=== PATIENT | female | born 1945 | race Caucasian/White ===

== ENCOUNTER 2016-08-18 10:33 | Inpatient (IN) ==
[2016-08-18] MEDS ORDERED: ONDANSETRON 4 MG/2 ML VIAL IV STA (11:13)
[2016-08-18] MEDS ORDERED: SODIUM CHLORIDE 0.9% 1,000 ML IV STA ×2 (11:13→13:38)
[2016-08-18] MEDS ORDERED: ONDANSETRON 4 MG/2 ML VIAL ONE (12:10)
[2016-08-18 12:20] LABS: Apearance,Urine Slightly Hazy (Clear); Bacteria,Urine Occasional /HPF (Few); Bilirubin,Urine Negative (Negative); Blood, Urine Moderate mg/dL (Negative); Glucose,Urine (UA) Negative (Negative); Ketones,Urine Negative (Negative); Mucus,Urine Occasional /LPF (Occasional); Nitrite,Urine Negative (Negative); Protein,Urine 100 MG/DL; RBC,Urine 3 /HPF (0-4); Squamous Epithelial Cell,Urine Occasional /HPF (0-10); Urine Color Yellow (Yellow); Urine Specific Gravity 1.013 (1.001-1.035); Urine Urobilinogen < 2.0 EU/DL (0.2-1.0); WBC,Urine 3 /HPF (0-6)
[2016-08-18 12:40] LABS: Albumin 2.4 G/DL (3.4-5.0); Calcium 8.3 MG/DL (8.5-10.1); Osmolality,Calculated 283.5 MOS/KG (273-304); Potassium 5.2 MMOL/L (3.5-5.1); Total Protein 6.2 G/DL (6.4-8.3)
[2016-08-18 13:07] LABS: Basophils # 0.1 10*3/uL (0.0-0.2); Basophils % 0.5 % (0.0-0.8); Hematocrit 23.1 VOL% (35.7-47.0); Hemoglobin 7.7 GM/DL (12.0-16.0); Immature Granulocytes % 1.8 %; Immature Granulocytes Absolute 0.23 #; Lymphocytes # 0.9 10*3/uL (1.4-4.0); Lymphocytes % 6.7 % (21.3-54.2); Mean Corpuscular HGB Conc 33.3 GM/DL (32-36); Mean Corpuscular Hemoglobin 28 PG (27-34); Mean Corpuscular Volume 83.4 FL (87-102); Mean Platelet Volume 12.7 FL (9.6-12.0); Monocytes # 0.5 10*3/uL (0.11-0.8); Monocytes % 3.6 % (1.7-12.7); Neutrophils # 11.2 10*3/uL (1.4-7.4); Neutrophils % 87.4 % (38.7-73.9); Platelet Count 89 T/CUMM (130-400); Red Blood Count 2.77 MC/CUMM (3.8-5.5); White Blood Count 12.9 T/CUMM (4-12)
[2016-08-18 13:25] LABS: Band Neutrophils 3 % (0-10); Hypochromasia 1+; Lymphocytes 3 % (20-55); Metamyelocytes 2 %; Microcytosis 1+; Nucleated Red Blood Cells 1 (0-5); Segmented Neutrophils 88 % (50-85); Total Cells Counted 100
[2016-08-18 13:26] LABS: Platelet Estimate Decreased
--- NOTE | 2016-08-18 14:09 | Emergency Department Note ---
Kedar Eller Jamie, am scribing for, and in the presence of, Joel Sams MD 11:14. Latrell Eller Doug C, MD, personally performed the services described in this documentation, ascribed by Paulo Thacker in my presence, and it is both accurate and complete . Arrival - Arrival Chief Complaint: Nausea/Vomiting/Diarrhea Stated Complaint: nausea/not feeling well/diarreha ED Nursing Triage Note: Pt c/o nausea, loose stools and weakness since yesterday. Chemo on . Mode of Arrival: Wheelchair Limitations: No Limitations Source: Patient, RN Notes Reviewed Time Seen by Provider: 08/18/16 10:44 - History of Present Illness HPI Narrative: Patient is a 70-year-old white female who developed nausea, vomiting and diarrhea yesterday. Patient received chemotherapy last week apparently had similar difficulty with her prior chemo. Patient denies any fever but she did have chills associated with this illness. She denies any history of blood in the stool or her vomitus. She denies any abdominal pain. Patient states she is vomited some but she is very weak and having difficulty walking. She has a history of pancreatic adenocarcinoma. Onset (ago): day(s) (1) Consistency: constant Severity: moderate Allergies/Adverse Reactions: Allergies Allergy/AdvReac Type Severity Reaction Status Date / Time fluconazole [From Diflucan] Allergy Severe PT STATES Verified 07/11/16 09:36 IT STOPS HER HEART. Home Medications: Home Medications Medication Instructions Recorded Confirmed Type Digoxin Tab [Lanoxin Tab] 0.5 tablet PO DAILY@1300 07/10/16 08/18/16 History Famotidine Tab [Pepcid Tab] 20 mg PO BID 07/10/16 08/18/16 History Fluoxetine HCl 20 mg PO DAILY 07/10/16 08/18/16 History Furosemide Tab [Lasix Tab] 40 mg PO DAILY PRN 07/10/16 08/18/16 History Rifaximin [Xifaxan] 550 mg PO BID 07/10/16 08/18/16 History Thyroid,Pork [[place] Thyroid] 90 mg PO DAILY 07/10/16 08/18/16 History glyBURIDE [Glyburide] 10 mg PO DAILY 07/10/16 08/18/16 History Lipase/Protease/Amylase [Creon 1 capsule PO DAILY W/SUPPER 08/18/16 08/18/16 History 12,000 Units] Promethazine HCl 12.5 mg PO Q4H PRN 08/18/16 08/18/16 History Review of System - Review of System 12 point system: reviewed and no additional remarkable complaints except as stated - Review of System Constitutional: Present: weakness. Absent: chills, diaphoresis, fever Eyes: Absent: vision change Respiratory: Absent: cough Cardiovascular: Absent: chest pain Gastrointestinal: Present: nausea, vomiting, diarrhea. Absent: abdominal pain, constipation Musculoskeletal: Absent: joint swelling Skin: Absent: rash, change in color Neurological: Absent: headache, weakness, numbness, confusion Hematological/Lymphatic: Absent: easy bleeding, easy bruising Medical,Surgical,& Family Hx - Medical History Cardio: History of: Cardiovascular Problems (STENT BETWEEN HEART AND LIVER [facility] GETTING INFO) Renal: History of: Renal (Kidney) Cancer (HX DECREASE FUNCTIO 6 YRS AGO) Gastrointestinal: History of: Gastrointestinal Cancer (Pancreatic), GI Problems (CIRHOSIS OF LIVER LIVER SUGERY SPLEEN REMOVE PART OF PANCREAS REMOVE [facility]) Comment Only: Ulcerative Colitis (GETTING INFO DR MCDONALD) - Surgical History Abdominal Surgeries: Surgical HX of: Abdominal Surgery, Colonoscopy, EGD - Family History Family History: Reports;: Family Diabetes (MOM) - Social History Smoking Status: Former smoker Exam Vital Signs: Vital Signs Temperature 98.7 F 08/18/16 10:34 Pulse Rate 121 H 08/18/16 10:34 Respiratory Rate 18 08/18/16 10:34 Blood Pressure 115/60 08/18/16 10:34 O2 Sat by Pulse Oximetry 95 08/18/16 10:34 - General General appearance: alert, in no apparent distress - Head Head exam: Present: atraumatic, normocephalic, normal inspection - Eye Eye exam: Present: normal appearance, PERRL, EOMI - ENT ENT exam: Present: normal exam, normal oropharynx, mucous membranes dry - Neck Neck exam: Present: normal inspection, full ROM - Chest Chest inspection: Present: normal inspection, symmetric chest wall rise - Respiratory Respiratory exam: Present: normal lung sounds bilaterally - Cardiovascular Cardiovascular exam: Present: regular rate, normal rhythm, normal heart sounds - Abdominal Exam Abdominal exam: Present: soft, normal bowel sounds - Extremities Exam Extremities exam: Present: normal inspection, full ROM - Back Exam Back exam: Present: normal inspection, full ROM - Neurological Exam Neurological exam: Present: alert, oriented X3, CN II-XII intact, reflexes normal - Psychiatric Psychiatric exam: Present: normal affect, normal mood - Skin Skin exam: Present: warm, dry, intact, normal color Course Course Narrative: Patient's clinical presentation, laboratory and radiographic findings were discussed with Dr. Reynaga. Patient will be admitted to the services of Dr. Ly and she will be transfused 2 units packed red blood cells per Results - Labs CBC & BMP: 08/18/16 12:53 08/18/16 11:51 Lab Results: I have reviewed the patients labs - Diagnostic Findings Procedure: Chest x-ray: report reviewed by me (No acute infiltrate) Disposition Clinical Impression: Gastroenteritis, Dehydration Case discussed with: patient, patient's family Disposition: Still a Patient Condition: Stable Time of Disposition: 14:09
[2016-08-18] MEDS ORDERED: MAGNESIUM HYDROXIDE SUSP 30 ML UDCUP PO PRN (14:11)
[2016-08-18] MEDS ORDERED: guaiFENesin 200 MG/10 ML UDCUP PO PRN (14:11)
[2016-08-18] MEDS ORDERED: LACTULOSE 20 GM/30 ML UDCUP PO PRN (14:11)
[2016-08-18] MEDS ORDERED: chlorproMAZINE 25 MG TABLET PO PRN (14:11)
[2016-08-18] MEDS ORDERED: TEMAZEPAM 7.5 MG CAPSULE PO PRN (14:11)
[2016-08-18] MEDS ORDERED: chlorproMAZINE INJ 25 MG in SODIUM CHLORIDE 0.9% 100 ML IV PRN (14:11)
[2016-08-18] MEDS ORDERED: traMADol 50 MG TABLET PO PRN (14:11)
[2016-08-18] MEDS ORDERED: ACETAMINOPHEN 325 MG TABLET PO PRN (14:11)
[2016-08-18] MEDS ORDERED: ONDANSETRON 4 MG/2 ML VIAL IV PRN (14:11)
[2016-08-18] MEDS ORDERED: PROMETHAZINE INJ 25 MG in SODIUM CHLORIDE 0.9% 50 ML IV PRN (14:11)
[2016-08-18] MEDS ORDERED: SODIUM CHLORIDE 0.9% 250 ML IV PRN (14:11)
[2016-08-18] MEDS ORDERED: MYLANTA/LIDO VISC 2:1 300 ML BOTTLE SWISH/SWAL PRN (14:11)
[2016-08-18] MEDS ORDERED: ALPRAZolam 0.25 MG TABLET PO PRN (14:11)
[2016-08-18] MEDS ORDERED: chlorproMAZINE INJ 50 MG in SODIUM CHLORIDE 0.9% 100 ML IV PRN (14:11)
[2016-08-18] MEDS ORDERED: MYLANTA/LIDO VISC 2:1 300 ML BOTTLE SWISH/SPIT PRN (14:11)
[2016-08-18] MEDS ORDERED: BENZTROPINE 2 MG/2 ML AMP IV PRN (14:11)
[2016-08-18] MEDS ORDERED: LOPERAMIDE 2 MG CAPSULE PO PRN (14:11)
[2016-08-18] MEDS ORDERED: ALUMINUM/MAGNES/SIMETH MAX STR 30 ML UDCUP PO PRN (14:11)
[2016-08-18] MEDS ORDERED: diphenhydrAMINE CAP 25 MG CAPSULE PO PRN (14:11)
--- NOTE | 2016-08-18 14:15 | XRay Report ---
XR chest 1V portable Indication: Shortness of breath Comparison: Chest x-ray 04/20/2010. Technique: Portable AP chest was performed. Findings: The heart size appears within normal limits. Left-sided venous access device terminates within the superior vena cava. Prior cervical fusion appears stable. Pulmonary vasculature demonstrates no specific abnormality. Hilar structures demonstrate fairly symmetric appearance. The lungs lungs demonstrate nonspecific stranding pattern of opacification in the lower chest unchanged from comparison study the main part be chronic. Some areas of parenchymal scarring and I excluded. Bones and soft tissues demonstrate no evidence of acute pathology. Impression: 1. No specific pattern of parenchymal abnormality is present to suggest acute pathology. Nonspecific interstitial stranding has changed little since comparison. 2. Interval insertion of left side venous access device. 08/18/2016 2:11 PM PROCEDURE INTERPRETED AT [facility] DEPARTMENT OF RADIOLOGY Final Report Signed by: Dr. Jamin Malave
[2016-08-18 14:31] LABS: Magnesium 1.8 MG/DL (1.8-2.4); Uric Acid 5.9 MG/DL (2.6-6.0)
[2016-08-18] MEDS: DEXTROSE 5% NACL 0.9% 1,000 ML IV SCH (16:14)
[2016-08-18] MEDS: FAMOTIDINE 20 MG TABLET PO SCH (16:29)
[2016-08-18] MEDS: LIPASE/PROTEASE/AMYLASE 4,200 UNITS CAPSULE PO SCH (16:29)
[2016-08-18] MEDS: RIFAXIMIN 550 MG TABLET PO SCH (21:13)
[2016-08-18] MEDS ORDERED: MEROPENEM 1,000 MG in SODIUM CHLORIDE 0.9% 100 ML IV SCH (23:30)
[2016-08-18] MEDS: MEROPENEM 1,000 MG in SODIUM CHLORIDE 0.9% 100 ML IV SCH (23:31)
[2016-08-19 05:38] LABS: Basophils # 0.1 10*3/uL (0.0-0.2); Basophils % 0.8 % (0.0-0.8); Hematocrit 25.3 VOL% (35.7-47.0); Hemoglobin 8.4 GM/DL (12.0-16.0); Immature Granulocytes % 1.9 %; Immature Granulocytes Absolute 0.21 #; Lymphocytes # 1.1 10*3/uL (1.4-4.0); Lymphocytes % 9.3 % (21.3-54.2); Mean Corpuscular HGB Conc 33.2 GM/DL (32-36); Mean Corpuscular Hemoglobin 28 PG (27-34); Mean Platelet Volume 12.1 FL (9.6-12.0); Monocytes # 0.7 10*3/uL (0.11-0.8); Monocytes % 6.1 % (1.7-12.7); NRBC # 0.03 10*3/uL; Neutrophils # 9.2 10*3/uL (1.4-7.4); Neutrophils % 81.9 % (38.7-73.9); Red Blood Count 3.05 MC/CUMM (3.8-5.5); Red Cell Distribution Width 17.5 % (9.3-17.3); White Blood Count 11.2 T/CUMM (4-12)
[2016-08-19 05:41] LABS: Platelet Count 58 T/CUMM (130-400)
[2016-08-19 06:28] LABS: Band Neutrophils 9 % (0-10); Hypochromasia Slight; Lymphocytes 9 % (20-55); Segmented Neutrophils 77 % (50-85); Total Cells Counted 100
[2016-08-19 06:31] LABS: Howell-Jolly Bodies Few
[2016-08-19 06:32] LABS: Toxic Granulation 1+
[2016-08-19] MEDS ORDERED: SODIUM CHLORIDE 0.9% 250 ML IV PRN (08:44)
--- NOTE | 2016-08-19 08:49 | Oncology History&Physical ---
Assessment and Plan (1) Pancreatic cancer Status: Acute Assessment and plan: Transfuse 1 additional red blood cell. Await blood culture results. Remains on antibiotics. We have discussed changing her chemotherapy to 1 dose every 2 weeks based on required hospitalization with each of the first 2 cycles Current Visit: Yes History of Present Illness Chief complaint: Weakness and diarrhea History of present illness: Ms. Holman is a 70 year old female With locally advanced pancreatic adenocarcinoma recently diagnosed at [facility]. She is status post cycle 2 day 8 gemcitabine and Abraxane approximately 6 days ago. She presented with weakness and diarrhea. She did have fever overnight and was placed on antibiotics with blood cultures obtained. She appears nontoxic this morning. She is urinating well. She has baseline chronic kidney disease with creatinine around 2.0. She was given Lomotil with significant improvement of her diarrhea. She was also anemic and has been transfused 2 units of red blood cells with a third unit to be ordered Home Medications Medication Instructions Recorded Confirmed Type Digoxin Tab [Lanoxin Tab] 0.5 tablet PO DAILY@1300 07/10/16 08/18/16 History Famotidine Tab [Pepcid Tab] 20 mg PO BID 07/10/16 08/18/16 History Fluoxetine HCl 20 mg PO DAILY 07/10/16 08/18/16 History Furosemide Tab [Lasix Tab] 40 mg PO DAILY PRN 07/10/16 08/18/16 History Rifaximin [Xifaxan] 550 mg PO BID 07/10/16 08/18/16 History Thyroid,Pork [[place] Thyroid] 90 mg PO DAILY 07/10/16 08/18/16 History glyBURIDE [Glyburide] 10 mg PO DAILY 07/10/16 08/18/16 History Lipase/Protease/Amylase [Creon 1 capsule PO DAILY W/SUPPER 08/18/16 08/18/16 History 12,000 Units] Promethazine HCl 12.5 mg PO Q4H PRN 08/18/16 08/18/16 History Allergies Allergy/AdvReac Type Severity Reaction Status Date / Time fluconazole [From Diflucan] Allergy Severe PT STATES Verified 07/11/16 09:36 IT STOPS HER HEART. Medical,Surgical,& Family Hx - Medical History Cardio: History of: Cardiovascular Problems (STENT BETWEEN HEART AND LIVER [facility] GETTING INFO) Neurology: History of: Seizures Endocrine: History of: Diabetes Mellitus (NIDDM), Thyroid Disorder Renal: History of: Renal (Kidney) Cancer (HX DECREASE FUNCTIO 6 YRS AGO), Renal Problems (Kidney Disease (Glomerularnephritis)) Gastrointestinal: History of: Gastrointestinal Cancer (Pancreatic), GI Problems (CIRHOSIS OF LIVER LIVER SUGERY SPLEEN REMOVE PART OF PANCREAS REMOVE [facility]) Comment Only: Ulcerative Colitis (GETTING INFO DR MCDONALD) - Surgical History Thoracic Surgeries: Patient denies;: Organ Transplant Abdominal Surgeries: Surgical HX of: Abdominal Surgery, Colonoscopy, EGD - Family History Family History: Reports;: Family Diabetes (MOM) - Social History Smoking Status: Former smoker Frequency of Alcohol Use: None Type of Drug Use: None - Constitutional Constitutional: Present: malaise. Absent: increased appetite - EENT Nose, mouth and throat: Absent: dizziness, dysphagia, epistaxis - Cardiovascular Cardiovascular ROS IM: Absent: chest pain, palpitations - Respiratory Respiratory: Absent: cough, hemoptysis, wheezing - Musculoskeletal Musculoskeletal ROS: Absent: joint swelling - Neurological Neurological ROS: Absent: dizziness, focal weakness, headache(s), memory loss, numbness - Psychiatric Psychiatric General: Absent: depression, panic attacks, suicidal ideation - Hematologic/Lymphatic Hematologic/Lymphatic: Absent: easy bleeding, lymphadenopathy Exam - Constitutional Vitals: Period Temp Pulse Resp BP Sys/Moore Pulse Ox Last 24 Hr 98.4 F-101.2 F 98-113 18-20 115-161/58-109 91-98 General appearance: no acute distress, over weight - Head Head Exam: Present: normal inspection, normocephalic, atraumatic - Eye Eye Exam: Present: EOMI. Absent: conjunctival injection, periorbital swelling, scleral icterus Pupils: Present: PERRL, normal accommodation - ENT ENT exam: Present: normal external ear exam - Neck Neck exam: Present: normal inspection. Absent: lymphadenopathy - Respiratory Respiratory exam: Present: CTAB. Absent: accessory muscle use, chest wall tenderness - Cardiovascular Cardiovascular exam: Present: RRR - GI/Abdominal GI/Abdominal exam: Absent: ascites, distended, firm, guarding, mass - Neurological Exam Neurological exam: Present: alert, oriented X3 - Psychiatric Psychiatric exam: Present: normal affect, normal mood - Skin Skin exam: Present: warm, dry Results - Labs CBC & BMP: 08/19/16 05:25 08/18/16 11:51
[2016-08-19] MEDS ORDERED: glyBURIDE 5 MG TABLET PO SCH (09:00)
[2016-08-19] MEDS: FAMOTIDINE 20 MG TABLET PO SCH (09:40)
[2016-08-19] MEDS: THYROID 60 MG TABLET PO SCH (09:40)
[2016-08-19] MEDS: RIFAXIMIN 550 MG TABLET PO SCH ×2 (09:40→20:45)
[2016-08-19] MEDS: PANTOPRAZOLE 40 MG VIAL IV SCH (09:41)
[2016-08-19] MEDS: MEROPENEM 1,000 MG in SODIUM CHLORIDE 0.9% 100 ML IV SCH ×2 (09:41→16:05)
[2016-08-19] MEDS: FLUoxetine 20 MG CAPSULE PO SCH (09:41)
[2016-08-19] MEDS: DIGOXIN 0.125 MG TABLET PO SCH (14:55)
[2016-08-19] MEDS: DEXTROSE 5% NACL 0.9% 1,000 ML IV SCH (16:02)
[2016-08-19] MEDS: LIPASE/PROTEASE/AMYLASE 4,200 UNITS CAPSULE PO SCH (17:33)
[2016-08-20] MEDS: MEROPENEM 1,000 MG in SODIUM CHLORIDE 0.9% 100 ML IV SCH ×4 (00:07→20:42)
[2016-08-20 04:01] LABS: Basophils # 0.1 10*3/uL (0.0-0.2); Basophils % 0.4 % (0.0-0.8); Eosinophils # 0.1 10*3/uL (0.0-0.87); Eosinophils % 0.4 % (0.00-10.9); Hematocrit 27.6 VOL% (35.7-47.0); Hemoglobin 9.3 GM/DL (12.0-16.0); Immature Granulocytes % 2.2 %; Immature Granulocytes Absolute 0.27 #; Lymphocytes # 1.2 10*3/uL (1.4-4.0); Mean Corpuscular HGB Conc 33.7 GM/DL (32-36); Mean Corpuscular Hemoglobin 27 PG (27-34); Mean Corpuscular Volume 81.4 FL (87-102); Mean Platelet Volume 9.9 FL (9.6-12.0); Monocytes # 1.8 10*3/uL (0.11-0.8); Monocytes % 14.6 % (1.7-12.7); NRBC # 0.06 10*3/uL; Neutrophils # 8.9 10*3/uL (1.4-7.4); Neutrophils % 72.4 % (38.7-73.9); Red Blood Count 3.39 MC/CUMM (3.8-5.5); Red Cell Distribution Width 17.4 % (9.3-17.3); White Blood Count 12.3 T/CUMM (4-12)
[2016-08-20 04:04] LABS: Platelet Count 38 T/CUMM (130-400)
[2016-08-20 04:26] LABS: Band Neutrophils 2 % (0-10); Lymphocytes 8 % (20-55); Nucleated Red Blood Cells 1 (0-5); Total Cells Counted 100
[2016-08-20 04:29] LABS: Burr Cells 2+; Platelet Estimate Decreased
[2016-08-20 04:30] LABS: Howell-Jolly Bodies Few; Ovalocytes 1+; Toxic Granulation 1+
[2016-08-20 04:31] LABS: Segmented Neutrophils 84 % (50-85)
[2016-08-20 04:58] LABS: Bilirubin,Total 0.6 MG/DL (0.2-1.0); Calcium 8.1 MG/DL (8.5-10.1); Magnesium 1.7 MG/DL (1.8-2.4); Osmolality,Calculated 282.4 MOS/KG (273-304); Potassium 3.6 MMOL/L (3.5-5.1)
[2016-08-20] MEDS ORDERED: MAGNESIUM SULF INJ 3 GM in SODIUM CHLORIDE 0.9% 100 ML IV ONE (08:23)
--- NOTE | 2016-08-20 08:25 | Oncology Progress Note ---
Assessment and Plan (1) Pancreatic cancer Status: Acute Assessment and plan: Transfuse 1 additional red blood cell. Await blood culture results. Remains on antibiotics. We have discussed changing her chemotherapy to 1 dose every 2 weeks based on required hospitalization with each of the first 2 cycles Current Visit: Yes Oncology Subjective PN Interval history: Hospital day 3 for patient with pancreatic cancer. Overnight she has had mild diarrhea. She is on a regular diet. She has had hypoglycemia and her glyburide is on hold. Her labs are reviewed with improved creatinine. She does have thrombocytopenia and we will repeat this tomorrow. I am giving her an IV magnesium. She does have an active infection with blood cultures still showing preliminary results at this time Exam - Constitutional Vitals: Period Temp Pulse Resp BP Sys/Moore Pulse Ox Last 24 Hr 97.2 F-101.1 F 76-113 18-20 128-149/58-68 93-95 Results - Labs CBC & BMP: 08/20/16 03:54 08/20/16 03:54
[2016-08-20] MEDS: LOPERAMIDE 2 MG CAPSULE PO PRN (09:24)
[2016-08-20] MEDS: THYROID 60 MG TABLET PO SCH (09:25)
[2016-08-20] MEDS: RIFAXIMIN 550 MG TABLET PO SCH ×2 (09:25→20:42)
[2016-08-20] MEDS: FLUoxetine 20 MG CAPSULE PO SCH (09:25)
[2016-08-20] MEDS: FAMOTIDINE 20 MG TABLET PO SCH (09:25)
[2016-08-20] MEDS: PANTOPRAZOLE 40 MG VIAL IV SCH (09:26)
[2016-08-20] MEDS: DIGOXIN 0.125 MG TABLET PO SCH (12:45)
[2016-08-20] MEDS: LIPASE/PROTEASE/AMYLASE 4,200 UNITS CAPSULE PO SCH (16:57)
[2016-08-20] MEDS: DEXTROSE 5% NACL 0.9% 1,000 ML IV SCH (18:57)
[2016-08-21] MEDS: DEXTROSE 5% NACL 0.9% 1,000 ML IV SCH (00:17)
[2016-08-21 05:02] LABS: Basophils % 0.1 % (0.0-0.8); Eosinophils # 0.1 10*3/uL (0.0-0.87); Eosinophils % 0.6 % (0.00-10.9); Hematocrit 26.9 VOL% (35.7-47.0); Hemoglobin 9.1 GM/DL (12.0-16.0); Immature Granulocytes % 1.6 %; Immature Granulocytes Absolute 0.23 #; Lymphocytes # 1.2 10*3/uL (1.4-4.0); Lymphocytes % 8.3 % (21.3-54.2); Mean Corpuscular HGB Conc 33.8 GM/DL (32-36); Mean Corpuscular Hemoglobin 28 PG (27-34); Mean Corpuscular Volume 83.3 FL (87-102); Mean Platelet Volume 11.3 FL (9.6-12.0); Monocytes # 2.8 10*3/uL (0.11-0.8); Monocytes % 18.9 % (1.7-12.7); NRBC # 0.29 10*3/uL; Neutrophils # 10.4 10*3/uL (1.4-7.4); Neutrophils % 70.5 % (38.7-73.9); Platelet Count 49 T/CUMM (130-400); Red Blood Count 3.23 MC/CUMM (3.8-5.5); Red Cell Distribution Width 17.7 % (9.3-17.3); White Blood Count 14.8 T/CUMM (4-12)
[2016-08-21 05:40] LABS: Eosinophils 1 % (0-10); Hypochromasia 1+; Lymphocytes 5 % (20-55); Nucleated Red Blood Cells 2 (0-5); Ovalocytes Slight; Platelet Estimate Decreased; Segmented Neutrophils 80 % (50-85); Total Cells Counted 100
[2016-08-21] MEDS ORDERED: HYOSCYAMINE 0.125 MG TABLET PO PRN (08:22)
--- NOTE | 2016-08-21 08:26 | Oncology Progress Note ---
Assessment and Plan (1) Pancreatic cancer Status: Acute Assessment and plan: Transfuse 1 additional red blood cell. Await blood culture results. Remains on antibiotics. We have discussed changing her chemotherapy to 1 dose every 2 weeks based on required hospitalization with each of the first 2 cycles Current Visit: Yes Oncology Subjective PN Interval history: Pancreatic cancer admitted with gastroenteritis. She is still having some loose bowel movements she is on pancreatic enzyme replacement. We are expecting physical therapy to see her today. Her daughter and I have encouraged her to get up and out of bed. Her p.o. intake remains limited. I will try probiotics and Levsin in addition to her other medications. Her platelets are improved today and her hematocrit and white blood cell count appear stable. We have discussed discharge for tomorrow. Cultures show Haemophilus influenza which appears multidrug sensitive Exam - Constitutional Vitals: Period Temp Pulse Resp BP Sys/Moore Pulse Ox Last 24 Hr 97.4 F-100.8 F 84-94 18-20 121-172/63-89 91-96 Results - Labs CBC & BMP: 08/21/16 04:00 08/20/16 03:54
[2016-08-21] MEDS ORDERED: glyBURIDE 5 MG TABLET PO SCH (09:00)
--- NOTE | 2016-08-21 09:16 | Physician Query Form ---
CLICK EDIT DOCUMENT TO SELECT QUERY ANSWER --> OK --> SIGN Yvonne Howard RN Clinical Provider Relations Specialist W) [phone] (f) [phone] [email or web address] PROVIDERS: Make your selection(s) from the choices in EACH section by typing an "x" and enter comments in the comment section. Please use your independent medical judgment in providing your response. This request does not imply that any particular answer is desired or expected. CLINICAL INDICATORS: (Providers should not edit this section) Based on lab results of creatinine on admission of 2.00 with a GFR of 30 and decreased to 1.60. Pt. treated with IV fluids. Clarify which of the following most accurately represents the patient's renal status: ( ) Acute kidney injury (non-traumatic) ( ) Acute renal failure ( ) Acute renal failure with underlying Chronic Kidney Disease (CKD) - please provide stage below (x ) CKD - please provide stage below ( ) Other, please specify: ( ) Clinically unable to determine Chronic Kidney Disease Stages Source: National Kidney Disease Foundation ( ) Stage I (eGFR > or = 90) ( ) Stage II (eGFR 60 - 89) (x ) Stage III (eGFR 30 - 59) ( ) Stage IV (eGFR 15 - 29) ( ) Stage V (eGFR < 15 or dialysis) COMMENTS: PLEASE ALSO DOCUMENT RESPONSE IN PROGRESS NOTES AND/OR DISCHARGE SUMMARY Use of terms such as suspected, likely, or probable (associated with a specific diagnosis that is being evaluated, monitored, or treated as if it exists) are acceptable and can be restated in the discharge summary if not ruled out. MTDD
[2016-08-21] MEDS: AMOXICILLIN 875 MG TABLET PO SCH ×2 (10:02→21:16)
[2016-08-21] MEDS: RIFAXIMIN 550 MG TABLET PO SCH ×2 (10:03→21:16)
[2016-08-21] MEDS: THYROID 60 MG TABLET PO SCH (10:03)
[2016-08-21] MEDS: FLUoxetine 20 MG CAPSULE PO SCH (10:03)
[2016-08-21] MEDS: FAMOTIDINE 20 MG TABLET PO SCH (10:03)
[2016-08-21] MEDS: LACTOBACILLUS RHAMNOSUS GG CAPSULE PO SCH ×2 (10:03→21:16)
[2016-08-21] MEDS: LOPERAMIDE 2 MG CAPSULE PO PRN (10:04)
[2016-08-21] MEDS: PANTOPRAZOLE 40 MG VIAL IV SCH (10:04)
[2016-08-21] MEDS: DIGOXIN 0.125 MG TABLET PO SCH (13:45)
[2016-08-21] MEDS: LIPASE/PROTEASE/AMYLASE 4,200 UNITS CAPSULE PO SCH (17:51)
[2016-08-22 08:30] VITALS: BP 140/64
[2016-08-22] MEDS ORDERED: HEPARIN LOCK FLUSH 500 UNIT/5 ML SYRINGE IV ONE (09:02)
[2016-08-22] MEDS: RIFAXIMIN 550 MG TABLET PO SCH (09:14)
[2016-08-22] MEDS: FAMOTIDINE 20 MG TABLET PO SCH (09:14)
[2016-08-22] MEDS: THYROID 60 MG TABLET PO SCH (09:14)
[2016-08-22] MEDS: LACTOBACILLUS RHAMNOSUS GG CAPSULE PO SCH (09:14)
[2016-08-22] MEDS: FLUoxetine 20 MG CAPSULE PO SCH (09:14)
[2016-08-22] MEDS: PANTOPRAZOLE 40 MG VIAL IV SCH (09:15)
[2016-08-22] MEDS: AMOXICILLIN 875 MG TABLET PO SCH (09:17)
--- NOTE | 2016-08-22 12:17 | Oncology Progress Note ---
Assessment and Plan (1) Pancreatic cancer Status: Acute Assessment and plan: Transfuse 1 additional red blood cell. Await blood culture results. Remains on antibiotics. We have discussed changing her chemotherapy to 1 dose every 2 weeks based on required hospitalization with each of the first 2 cycles Current Visit: Yes Oncology Subjective PN Interval history: Patient admitted with fever nausea vomiting diarrhea history of locally advanced pancreatic cancer receiving active chemotherapy with gemcitabine and Abraxane. During this hospitalization she received fluid resuscitation. She did experience hypoglycemia with modification of her oral anti-hyperglycemics. Her creatinine is remained at or below her baseline with pre-existing chronic kidney disease. She has been transfused 3 units of red blood cells during this hospitalization with anemia of chronic disease and chemotherapy related anemia. She has not exhibited any signs of bleeding. Her blood cultures were notable for Haemophilus influenza which is felt to be penicillin sensitive. She did receive IV antibiotics initially and is now transitioned to amoxicillin 875 twice daily for an additional 10 days. Other medications as outlined in the electronic health record. Follow-up is scheduled for 6 days from today at my office. Exam - Constitutional Vitals: Period Temp Pulse Resp BP Sys/Moore Pulse Ox Last 24 Hr 97.6 F-99.6 F 90-99 16-20 140-182/7-77 93-95 Results - Labs CBC & BMP: 08/21/16 04:00 08/20/16 03:54
--- NOTE | 2016-08-22 13:16 | Physician Query Form ---
CLICK EDIT DOCUMENT TO SELECT QUERY ANSWER --> OK --> SIGN Yvonne Howard RN Clinical Professor Of Family Medicine W) [phone] (f) [phone] [email or web address] PROVIDERS: Make your selection(s) from the choices in EACH section by typing an "x" and enter comments in the comment section. Please use your independent medical judgment in providing your response. This request does not imply that any particular answer is desired or expected. CLINICAL INDICATORS: (Providers should not edit this section) Based on documentation of "She does have an active infection with blood cultures still showing preliminary results at this time" and "Her blood cultures were notable for Haemophilus influenza". Temp of 101.2, Onwfn=[id number] on admission. WBC=14.8. Pt. treated with IV antibiotics. Please clarify which, if any, of the following is the etiology of the above symptoms and treatment rendered: ( x) Sepsis due to a localized infection, please specify infection: blood born ( ) Severe Sepsis (sepsis with acute organ failure) - Please specify type acute organ failure: ( ) SIRS of noninfectious origin ( ) Localized infection only, without systemic illness, please specify infection : ( ) Bacteremia (abnormal lab finding only, does not indicate systemic illness) ( ) Other condition, please specify: ( ) Clinically unable to determine Criteria for Sepsis (SIRS due to an infection) should be based on 2 or more of the following being present: Temperature > 101F or < 96.8F WBC > 12,000 or < 4,000, or > 10% bands Tachycardia HR > 90 beats/minute Tachypnea RR > 20 breaths/minute or PaCO2 > 32mmHg Lactate level > 2.0 mmol/L (>4 is equivalent to severe sepsis) Altered Mental Status Mottling of skin or prolonged capillary refill Non-diabetic hyperglycemia (blood sugar >120 mg/dl) Other evidence of acute organ failure associated with sepsis ( severe sepsis) COMMENTS: PLEASE ALSO DOCUMENT RESPONSE IN PROGRESS NOTES AND/OR DISCHARGE SUMMARY Use of terms such as suspected, likely, or probable (associated with a specific diagnosis that is being evaluated, monitored, or treated as if it exists) are acceptable and can be restated in the discharge summary if not ruled out. MTDD
== END 2016-08-22 09:52 | disposition home or self-care (01) | DRG 872 ==
LOC: N.EDINP 10:33 → N.ED 10:33 → N.4E 14:37
PROVIDERS: ADMIT Specialist; ATTEND Specialist

== ENCOUNTER 2017-01-30 10:20 | Inpatient (IN) ==
[2017-01-30] MEDS ORDERED: SODIUM CHLORIDE 0.9% 2,300 ML IV ONE (10:39)
[2017-01-30] MEDS ORDERED: PIPERACILLIN/TAZOBACTAM 3,375 MG in SODIUM CHLORIDE 0.9% 100 ML IV STA (10:43)
[2017-01-30 11:40] LABS: Basophils # 0.1 10*3/uL (0.0-0.2); Basophils % 0.2 % (0.0-0.8); Eosinophils # 0.1 10*3/uL (0.0-0.87); Eosinophils % 0.4 % (0.00-10.9); Hematocrit 26.2 VOL% (35.7-47.0); Hemoglobin 8.7 GM/DL (12.0-16.0); Immature Granulocytes % 0.6 %; Immature Granulocytes Absolute 0.15 #; Lymphocytes # 2.8 10*3/uL (1.4-4.0); Lymphocytes % 11.7 % (21.3-54.2); Mean Corpuscular HGB Conc 33.2 GM/DL (32-36); Mean Corpuscular Hemoglobin 32 PG (27-34); Mean Platelet Volume 10.8 FL (9.6-12.0); Monocytes # 5.2 10*3/uL (0.11-0.8); Monocytes % 21.5 % (1.7-12.7); Neutrophils # 15.8 10*3/uL (1.4-7.4); Neutrophils % 65.6 % (38.7-73.9); Platelet Count 214 T/CUMM (130-400); Red Blood Count 2.73 MC/CUMM (3.8-5.5); Red Cell Distribution Width 14.6 % (9.3-17.3); White Blood Count 24.2 T/CUMM (4-12)
[2017-01-30 11:49] LABS: INR 1.1; PT Patient Result 11.7 SECS; Partial Thromboplastin Time 32.5 SECS (0-40)
[2017-01-30 12:00] LABS: Band Neutrophils 6 % (0-10); Eosinophils 1 % (0-10); Hypochromasia 1+; Lymphocytes 13 % (20-55); Metamyelocytes 1 %; Platelet Estimate Adequate; Segmented Neutrophils 67 % (50-85); Total Cells Counted 100
[2017-01-30 12:19] LABS: Lactic Acid 2.4 MMOL/L (0.4-2.0)
[2017-01-30 12:20] LABS: Albumin 2.2 G/DL (3.4-5.0); Bilirubin,Total 1.3 MG/DL (0.2-1.0); Calcium 9.6 MG/DL (8.5-10.1); Osmolality,Calculated 280.8 MOS/KG (273-304); Potassium 4.1 MMOL/L (3.5-5.1); Total Protein 6.4 G/DL (6.4-8.3)
[2017-01-30] MEDS ORDERED: PIPERACILLIN/TAZOBACTAM 3,375 MG VIAL IV ONE (12:26)
[2017-01-30 12:56] LABS: Apearance,Urine Slightly Hazy (Clear); Bilirubin,Urine Negative (Negative); Blood, Urine Small mg/dL (Negative); Glucose,Urine (UA) Negative (Negative); Ketones,Urine Negative (Negative); Mucus,Urine Occasional /LPF (Occasional); Nitrite,Urine Negative (Negative); Protein,Urine 100 MG/DL; Squamous Epithelial Cell,Urine Occasional /HPF (0-10); Urine Color Yellow (Yellow); Urine Specific Gravity 1.011 (1.001-1.035); Urine Urobilinogen < 2.0 EU/DL (0.2-1.0); WBC,Urine 1 /HPF (0-6)
[2017-01-30] MEDS ORDERED: ONDANSETRON 4 MG/2 ML VIAL IV PRN (16:30)
[2017-01-30] MEDS: DEXT 5% NACL 0.45% KCL 20 MEQ 20 MEQ/1,000 ML BAG IV SCH (16:30)
[2017-01-30] MEDS ORDERED: diphenhydrAMINE CAP 25 MG CAPSULE PO PRN (16:30)
[2017-01-30] MEDS ORDERED: BENZTROPINE 2 MG/2 ML AMP IV PRN (16:30)
[2017-01-30] MEDS ORDERED: traMADol 50 MG TABLET PO PRN (16:30)
[2017-01-30] MEDS ORDERED: PROMETHAZINE INJ 25 MG in SODIUM CHLORIDE 0.9% 50 ML IV PRN (16:30)
[2017-01-30] MEDS ORDERED: MYLANTA/LIDO VISC 2:1 300 ML BOTTLE SWISH/SPIT PRN (16:30)
[2017-01-30] MEDS ORDERED: chlorproMAZINE 25 MG TABLET PO PRN (16:30)
[2017-01-30] MEDS ORDERED: SODIUM CHLORIDE 0.9% 1,000 ML IV SCH (16:30)
[2017-01-30] MEDS ORDERED: LOPERAMIDE 2 MG CAPSULE PO PRN ×2 (16:30)
[2017-01-30] MEDS ORDERED: TEMAZEPAM 7.5 MG CAPSULE PO PRN (16:30)
[2017-01-30] MEDS ORDERED: chlorproMAZINE INJ 25 MG in SODIUM CHLORIDE 0.9% 100 ML IV PRN (16:30)
[2017-01-30] MEDS ORDERED: VANCOMYCIN INJ 1,000 MG in SODIUM CHLORIDE 0.9% 250 ML IV STA (16:30)
[2017-01-30] MEDS ORDERED: ALPRAZolam 0.25 MG TABLET PO PRN (16:30)
[2017-01-30] MEDS ORDERED: guaiFENesin 200 MG/10 ML UDCUP PO PRN (16:30)
[2017-01-30] MEDS ORDERED: chlorproMAZINE INJ 50 MG in SODIUM CHLORIDE 0.9% 100 ML IV PRN (16:30)
[2017-01-30] MEDS ORDERED: LACTULOSE 20 GM/30 ML UDCUP PO PRN (16:30)
[2017-01-30] MEDS ORDERED: MAGNESIUM HYDROXIDE SUSP 30 ML UDCUP PO PRN (16:30)
[2017-01-30] MEDS ORDERED: MYLANTA/LIDO VISC 2:1 300 ML BOTTLE SWISH/SWAL PRN (16:30)
[2017-01-30 17:03] LABS: Basophils # 0.1 10*3/uL (0.0-0.2); Basophils % 0.2 % (0.0-0.8); Eosinophils # 0.1 10*3/uL (0.0-0.87); Eosinophils % 0.4 % (0.00-10.9); Hematocrit 25.8 VOL% (35.7-47.0); Hemoglobin 8.4 GM/DL (12.0-16.0); Immature Granulocytes % 1.1 %; Immature Granulocytes Absolute 0.24 #; Lymphocytes # 3.8 10*3/uL (1.4-4.0); Lymphocytes % 17.9 % (21.3-54.2); Mean Corpuscular HGB Conc 32.6 GM/DL (32-36); Mean Corpuscular Hemoglobin 32 PG (27-34); Mean Corpuscular Volume 97.7 FL (87-102); Mean Platelet Volume 10.3 FL (9.6-12.0); Monocytes # 3.8 10*3/uL (0.11-0.8); Monocytes % 17.7 % (1.7-12.7); Neutrophils # 13.3 10*3/uL (1.4-7.4); Neutrophils % 62.7 % (38.7-73.9); Platelet Count 189 T/CUMM (130-400); Red Blood Count 2.64 MC/CUMM (3.8-5.5); Red Cell Distribution Width 14.8 % (9.3-17.3); White Blood Count 21.2 T/CUMM (4-12)
[2017-01-30 17:24] LABS: Albumin 1.9 G/DL (3.4-5.0); Bilirubin,Total 2.2 MG/DL (0.2-1.0); Calcium 8.8 MG/DL (8.5-10.1); Magnesium 1.4 MG/DL (1.8-2.4); Osmolality,Calculated 289.3 MOS/KG (273-304); Potassium 4.5 MMOL/L (3.5-5.1); Total Protein 5.6 G/DL (6.4-8.3); Uric Acid 6.1 MG/DL (2.6-6.0)
[2017-01-30] MEDS ORDERED: MEROPENEM 1,000 MG in SODIUM CHLORIDE 0.9% 50 ML IV ONE (17:30)
[2017-01-30] MEDS ORDERED: PIPERACILLIN/TAZOBACTAM 3,375 MG in SODIUM CHLORIDE 0.9% 100 ML IV SCH (18:00)
[2017-01-30] MEDS: ACETAMINOPHEN 325 MG TABLET PO PRN (20:04)
[2017-01-30 21:58] LABS: Lymphocytes 14 % (20-55); Myelocytes 1 %; Platelet Estimate Adequate; Polychromasia Few; Segmented Neutrophils 83 % (50-85); Target Cells Few; Total Cells Counted 100
[2017-01-31] MEDS: DEXT 5% NACL 0.45% KCL 20 MEQ 20 MEQ/1,000 ML BAG IV SCH ×3 (03:09→22:36)
[2017-01-31 04:48] LABS: Basophils % 0.3 % (0.0-0.8); Eosinophils # 0.2 10*3/uL (0.0-0.87); Eosinophils % 1.8 % (0.00-10.9); Hematocrit 23.1 VOL% (35.7-47.0); Hemoglobin 7.7 GM/DL (12.0-16.0); Immature Granulocytes % 0.4 %; Immature Granulocytes Absolute 0.05 #; Lymphocytes # 2.5 10*3/uL (1.4-4.0); Lymphocytes % 18.1 % (21.3-54.2); Mean Corpuscular HGB Conc 33.3 GM/DL (32-36); Mean Corpuscular Hemoglobin 32 PG (27-34); Mean Corpuscular Volume 95.9 FL (87-102); Mean Platelet Volume 10.7 FL (9.6-12.0); Monocytes # 3.1 10*3/uL (0.11-0.8); Neutrophils # 7.7 10*3/uL (1.4-7.4); Neutrophils % 56.4 % (38.7-73.9); Platelet Count 173 T/CUMM (130-400); Red Blood Count 2.41 MC/CUMM (3.8-5.5); Red Cell Distribution Width 14.6 % (9.3-17.3); White Blood Count 13.6 T/CUMM (4-12)
[2017-01-31 05:11] LABS: Eosinophils 3 % (0-10); Giant Platelets Few; Hypochromasia 1+; Lymphocytes 17 % (20-55); Ovalocytes Slight; Platelet Estimate Normal; Segmented Neutrophils 61 % (50-85); Total Cells Counted 100
[2017-01-31 05:17] LABS: Albumin 1.7 G/DL (3.4-5.0); Bilirubin,Total 1.3 MG/DL (0.2-1.0); Calcium 8.3 MG/DL (8.5-10.1); Osmolality,Calculated 286.7 MOS/KG (273-304); Potassium 4.1 MMOL/L (3.5-5.1)
[2017-01-31] MEDS: ACETAMINOPHEN 325 MG TABLET PO PRN ×2 (05:25→15:15)
[2017-01-31] MEDS: MEROPENEM 1,000 MG in SYRINGE 1 EACH IV SCH ×2 (05:42→17:52)
[2017-01-31 06:30] LABS: INR 1.1
[2017-01-31] MEDS ORDERED: ONDANSETRON 4 MG TABLET PO PRN (08:34)
[2017-01-31] MEDS ORDERED: PROMETHAZINE 25 MG TABLET PO PRN (08:34)
[2017-01-31] MEDS ORDERED: SODIUM CHLORIDE 0.9% 1,000 ML IV PRN (08:38)
[2017-01-31] MEDS ORDERED: metroNIDAZOLE INJ 500 MG in PREMIX 1 EACH IV SCH (09:00)
[2017-01-31] MEDS ORDERED: CEFUROXIME 250 MG TABLET PO SCH (09:00)
[2017-01-31] MEDS: DIGOXIN 0.125 MG TABLET PO SCH (09:13)
[2017-01-31] MEDS: RIFAXIMIN 550 MG TABLET PO SCH ×2 (09:13→21:30)
[2017-01-31] MEDS: FAMOTIDINE 20 MG TABLET PO SCH (09:14)
[2017-01-31] MEDS: THYROID 60 MG TABLET PO SCH (09:14)
[2017-01-31] MEDS: MAGNESIUM CHLORIDE 64 MG TABLET PO SCH ×2 (09:14→21:30)
[2017-01-31] MEDS: CHOLECALCIFEROL 1,000 UNIT TABLET PO SCH ×2 (09:15→21:28)
[2017-01-31] MEDS: glyBURIDE 5 MG TABLET PO SCH (09:16)
[2017-01-31] MEDS ORDERED: SODIUM CHLORIDE 0.9% 50 ML IV ONE (17:46)
[2017-01-31] MEDS: FLUoxetine 20 MG CAPSULE PO SCH (21:31)
[2017-02-01] MEDS: DEXT 5% NACL 0.45% KCL 20 MEQ 20 MEQ/1,000 ML BAG IV SCH ×5 (04:22→23:46)
[2017-02-01 06:04] LABS: Basophils % 0.4 % (0.0-0.8); Eosinophils # 0.3 10*3/uL (0.0-0.87); Eosinophils % 4.3 % (0.00-10.9); Hematocrit 29.2 VOL% (35.7-47.0); Immature Granulocytes % 0.3 %; Immature Granulocytes Absolute 0.02 #; Lymphocytes # 1.5 10*3/uL (1.4-4.0); Lymphocytes % 19.3 % (21.3-54.2); Mean Corpuscular HGB Conc 34.2 GM/DL (32-36); Mean Corpuscular Hemoglobin 32 PG (27-34); Mean Corpuscular Volume 92.1 FL (87-102); Mean Platelet Volume 11.2 FL (9.6-12.0); Monocytes % 25.9 % (1.7-12.7); Neutrophils # 3.8 10*3/uL (1.4-7.4); Neutrophils % 49.8 % (38.7-73.9); Platelet Count 170 T/CUMM (130-400)
[2017-02-01] MEDS: MEROPENEM 1,000 MG in SYRINGE 1 EACH IV SCH ×2 (06:05→17:56)
[2017-02-01 06:19] LABS: Red Blood Count 3.17 MC/CUMM (3.8-5.5); White Blood Count 7.6 T/CUMM (4-12)
[2017-02-01 06:59] LABS: Albumin 1.7 G/DL (3.4-5.0); Bilirubin,Total 1.5 MG/DL (0.2-1.0); Calcium 8.7 MG/DL (8.5-10.1); Osmolality,Calculated 286.8 MOS/KG (273-304); Potassium 4.9 MMOL/L (3.5-5.1); Total Protein 5.1 G/DL (6.4-8.3)
[2017-02-01 07:14] LABS: Eosinophils 9 % (0-10); Lymphocytes 18 % (20-55); Segmented Neutrophils 53 % (50-85); Total Cells Counted 100
[2017-02-01 07:15] LABS: Hypochromasia 1+; Microcytosis 1+
[2017-02-01] MEDS: CHOLECALCIFEROL 1,000 UNIT TABLET PO SCH ×2 (08:46→20:45)
[2017-02-01] MEDS: DIGOXIN 0.125 MG TABLET PO SCH (08:48)
[2017-02-01] MEDS: glyBURIDE 5 MG TABLET PO SCH (08:50)
[2017-02-01] MEDS: MAGNESIUM CHLORIDE 64 MG TABLET PO SCH ×2 (08:51→20:45)
[2017-02-01] MEDS: FAMOTIDINE 20 MG TABLET PO SCH (08:51)
[2017-02-01] MEDS: RIFAXIMIN 550 MG TABLET PO SCH ×2 (08:51→20:45)
[2017-02-01] MEDS: THYROID 60 MG TABLET PO SCH (08:51)
[2017-02-01] MEDS: FLUoxetine 20 MG CAPSULE PO SCH (20:45)
[2017-02-01] MEDS: ALUMINUM/MAGNES/SIMETH MAX STR 30 ML UDCUP PO PRN (20:46)
[2017-02-02] MEDS ORDERED: cloNIDine 0.1 MG TABLET PO PRN ×2 (04:48→11:19)
[2017-02-02 05:14] LABS: Basophils % 0.5 % (0.0-0.8); Eosinophils # 0.5 10*3/uL (0.0-0.87); Eosinophils % 7.7 % (0.00-10.9); Hematocrit 30.6 VOL% (35.7-47.0); Hemoglobin 10.1 GM/DL (12.0-16.0); Immature Granulocytes % 0.2 %; Immature Granulocytes Absolute 0.01 #; Lymphocytes # 2.2 10*3/uL (1.4-4.0); Lymphocytes % 32.7 % (21.3-54.2); Mean Corpuscular Hemoglobin 31 PG (27-34); Mean Corpuscular Volume 92.4 FL (87-102); Mean Platelet Volume 10.5 FL (9.6-12.0); Monocytes # 1.8 10*3/uL (0.11-0.8); Monocytes % 27.4 % (1.7-12.7); Neutrophils # 2.1 10*3/uL (1.4-7.4); Neutrophils % 31.5 % (38.7-73.9); Platelet Count 188 T/CUMM (130-400); Red Blood Count 3.31 MC/CUMM (3.8-5.5); Red Cell Distribution Width 15.3 % (9.3-17.3); White Blood Count 6.6 T/CUMM (4-12)
[2017-02-02] MEDS: MEROPENEM 1,000 MG in SYRINGE 1 EACH IV SCH ×2 (05:24→17:18)
[2017-02-02 05:37] LABS: Band Neutrophils 1 % (0-10); Eosinophils 7 % (0-10); Hypochromasia 1+; Lymphocytes 32 % (20-55); Segmented Neutrophils 40 % (50-85); Total Cells Counted 100
[2017-02-02 05:38] LABS: Microcytosis Slight
[2017-02-02 05:51] LABS: Albumin 1.7 G/DL (3.4-5.0); Bilirubin,Total 1.6 MG/DL (0.2-1.0); Calcium 9.2 MG/DL (8.5-10.1); Osmolality,Calculated 282.3 MOS/KG (273-304); Potassium 4.9 MMOL/L (3.5-5.1); Total Protein 5.2 G/DL (6.4-8.3)
[2017-02-02] MEDS: CHOLECALCIFEROL 1,000 UNIT TABLET PO SCH ×2 (08:53→20:29)
[2017-02-02] MEDS: RIFAXIMIN 550 MG TABLET PO SCH ×2 (08:53→20:29)
[2017-02-02] MEDS: FAMOTIDINE 20 MG TABLET PO SCH (08:54)
[2017-02-02] MEDS: MAGNESIUM CHLORIDE 64 MG TABLET PO SCH ×2 (08:54→20:30)
[2017-02-02] MEDS: DIGOXIN 0.125 MG TABLET PO SCH (08:55)
[2017-02-02] MEDS: THYROID 60 MG TABLET PO SCH (08:57)
[2017-02-02] MEDS: glyBURIDE 5 MG TABLET PO SCH (09:01)
[2017-02-02] MEDS: DEXT 5% NACL 0.45% KCL 20 MEQ 20 MEQ/1,000 ML BAG IV SCH ×3 (11:13→19:05)
[2017-02-02] MEDS: ALUMINUM/MAGNES/SIMETH MAX STR 30 ML UDCUP PO PRN (20:29)
[2017-02-02] MEDS: FLUoxetine 20 MG CAPSULE PO SCH (20:30)
[2017-02-03 05:23] LABS: Magnesium 1.7 MG/DL (1.8-2.4)
[2017-02-03 05:30] LABS: Basophils # 0.1 10*3/uL (0.0-0.2); Basophils % 0.6 % (0.0-0.8); Eosinophils # 0.5 10*3/uL (0.0-0.87); Eosinophils % 6.1 % (0.00-10.9); Hematocrit 30.1 VOL% (35.7-47.0); Immature Granulocytes % 0.3 %; Immature Granulocytes Absolute 0.02 #; Lymphocytes # 2.9 10*3/uL (1.4-4.0); Lymphocytes % 37.4 % (21.3-54.2); Mean Corpuscular HGB Conc 33.2 GM/DL (32-36); Mean Corpuscular Hemoglobin 31 PG (27-34); Mean Corpuscular Volume 92.9 FL (87-102); Mean Platelet Volume 10.6 FL (9.6-12.0); Monocytes # 1.9 10*3/uL (0.11-0.8); Monocytes % 24.1 % (1.7-12.7); Neutrophils # 2.4 10*3/uL (1.4-7.4); Neutrophils % 31.5 % (38.7-73.9); Platelet Count 181 T/CUMM (130-400); Red Blood Count 3.24 MC/CUMM (3.8-5.5); Red Cell Distribution Width 15.4 % (9.3-17.3); White Blood Count 7.7 T/CUMM (4-12)
[2017-02-03 05:43] LABS: Albumin 1.7 G/DL (3.4-5.0); Bilirubin,Total 0.9 MG/DL (0.2-1.0); Calcium 9.1 MG/DL (8.5-10.1); Osmolality,Calculated 274.5 MOS/KG (273-304); Potassium 4.7 MMOL/L (3.5-5.1); Total Protein 5.1 G/DL (6.4-8.3)
[2017-02-03 06:01] LABS: Eosinophils 6 % (0-10); Hypochromasia 1+; Lymphocytes 38 % (20-55); Microcytosis Slight; Platelet Estimate Adequate; Segmented Neutrophils 34 % (50-85); Total Cells Counted 100
[2017-02-03] MEDS: MEROPENEM 1,000 MG in SYRINGE 1 EACH IV SCH ×2 (07:30→18:13)
[2017-02-03] MEDS: MAGNESIUM CHLORIDE 64 MG TABLET PO SCH ×2 (09:41→21:33)
[2017-02-03] MEDS: CHOLECALCIFEROL 1,000 UNIT TABLET PO SCH ×2 (09:41→21:33)
[2017-02-03] MEDS: THYROID 60 MG TABLET PO SCH (09:41)
[2017-02-03] MEDS: DIGOXIN 0.125 MG TABLET PO SCH (09:42)
[2017-02-03] MEDS: glyBURIDE 5 MG TABLET PO SCH (09:42)
[2017-02-03] MEDS: RIFAXIMIN 550 MG TABLET PO SCH ×2 (09:42→21:34)
[2017-02-03] MEDS: FAMOTIDINE 20 MG TABLET PO SCH (09:42)
[2017-02-03] MEDS: DEXT 5% NACL 0.45% KCL 20 MEQ 20 MEQ/1,000 ML BAG IV SCH (11:24)
[2017-02-03] MEDS: FLUoxetine 20 MG CAPSULE PO SCH (21:34)
[2017-02-03] MEDS: ALUMINUM/MAGNES/SIMETH MAX STR 30 ML UDCUP PO PRN (21:39)
[2017-02-04] MEDS: THYROID 60 MG TABLET PO SCH (09:10)
[2017-02-04] MEDS: CHOLECALCIFEROL 1,000 UNIT TABLET PO SCH (09:10)
[2017-02-04] MEDS: DIGOXIN 0.125 MG TABLET PO SCH (09:10)
[2017-02-04] MEDS: glyBURIDE 5 MG TABLET PO SCH (09:10)
[2017-02-04] MEDS: RIFAXIMIN 550 MG TABLET PO SCH (09:10)
[2017-02-04] MEDS: MAGNESIUM CHLORIDE 64 MG TABLET PO SCH (09:10)
[2017-02-04] MEDS: FAMOTIDINE 20 MG TABLET PO SCH (09:10)
[2017-02-04 09:55] LABS: Albumin 1.9 G/DL (3.4-5.0); Bilirubin,Total 0.8 MG/DL (0.2-1.0); Calcium 9.9 MG/DL (8.5-10.1); Osmolality,Calculated 274.5 MOS/KG (273-304); Potassium 4.9 MMOL/L (3.5-5.1); Total Protein 5.2 G/DL (6.4-8.3)
[2017-02-04 10:01] LABS: Basophils # 0.1 10*3/uL (0.0-0.2); Basophils % 0.7 % (0.0-0.8); Eosinophils # 0.3 10*3/uL (0.0-0.87); Hematocrit 30.6 VOL% (35.7-47.0); Hemoglobin 10.3 GM/DL (12.0-16.0); Immature Granulocytes % 0.6 %; Immature Granulocytes Absolute 0.05 #; Lymphocytes # 2.2 10*3/uL (1.4-4.0); Lymphocytes % 26.9 % (21.3-54.2); Mean Corpuscular HGB Conc 33.7 GM/DL (32-36); Mean Corpuscular Hemoglobin 31 PG (27-34); Mean Corpuscular Volume 92.7 FL (87-102); Mean Platelet Volume 10.5 FL (9.6-12.0); Monocytes # 2.3 10*3/uL (0.11-0.8); Neutrophils # 3.3 10*3/uL (1.4-7.4); Neutrophils % 40.8 % (38.7-73.9); Platelet Count 199 T/CUMM (130-400); White Blood Count 8.2 T/CUMM (4-12)
[2017-02-04] MEDS: MEROPENEM 1,000 MG in SYRINGE 1 EACH IV SCH (10:33)
[2017-02-04 11:15] LABS: Lymphocytes 14 % (20-55); Segmented Neutrophils 72 % (50-85); Total Cells Counted 100
[2017-02-04 11:16] LABS: Hypochromasia 2+; Platelet Estimate Adequate
[2017-02-04] MEDS ORDERED: HEPARIN LOCK FLUSH 500 UNIT/5 ML SYRINGE IV PRN (11:21)
[2017-02-04 13:41] VITALS: BP 182/77
== END 2017-02-04 13:30 | disposition home or self-care (01) | DRG 864 ==
LOC: N.ED 10:20 → N.EDINP 14:19 → N.4E 15:46
PROVIDERS: ADMIT Specialist; ATTEND Specialist

== ENCOUNTER 2017-02-24 18:55 | Inpatient (IN) ==
[2017-02-24] MEDS ORDERED: SODIUM CHLORIDE 0.9% 500 ML IV STA (19:18)
[2017-02-24 19:59] LABS: Basophils % 0.5 % (0.0-0.8); Hematocrit 33.9 VOL% (35.7-47.0); Hemoglobin 11.3 GM/DL (12.0-16.0); Immature Granulocytes % 0.2 %; Immature Granulocytes Absolute 0.02 #; Lymphocytes # 2.9 10*3/uL (1.4-4.0); Lymphocytes % 33.9 % (21.3-54.2); Mean Corpuscular HGB Conc 33.3 GM/DL (32-36); Mean Corpuscular Hemoglobin 30 PG (27-34); Mean Corpuscular Volume 90.4 FL (87-102); Mean Platelet Volume 10.9 FL (9.6-12.0); Monocytes # 1.7 10*3/uL (0.11-0.8); Neutrophils # 3.9 10*3/uL (1.4-7.4); Neutrophils % 45.4 % (38.7-73.9); Platelet Count 219 T/CUMM (130-400); Red Blood Count 3.75 MC/CUMM (3.8-5.5); Red Cell Distribution Width 14.5 % (9.3-17.3); White Blood Count 8.5 T/CUMM (4-12)
[2017-02-24 20:21] LABS: Apearance,Urine Slightly Hazy (Clear); Bacteria,Urine Few /HPF (Few); Bilirubin,Urine Negative (Negative); Blood, Urine Small mg/dL (Negative); Glucose,Urine (UA) 50 mg/dL (Negative); Ketones,Urine Negative (Negative); Mucus,Urine Occasional /LPF (Occasional); Nitrite,Urine Negative (Negative); Protein,Urine >=500 MG/DL; Squamous Epithelial Cell,Urine Occasional /HPF (0-10); Urine Color Yellow (Yellow); Urine Specific Gravity 1.016 (1.001-1.035); WBC,Urine 3 /HPF (0-6)
[2017-02-24 20:22] LABS: Albumin 2.6 G/DL (3.4-5.0); Bilirubin,Total 0.7 MG/DL (0.2-1.0); Calcium 10.2 MG/DL (8.5-10.1); Magnesium 1.7 MG/DL (1.8-2.4); Potassium 3.6 MMOL/L (3.5-5.1); Total Protein 7.3 G/DL (6.4-8.3)
[2017-02-24 20:22] LABS: Barbiturates Screen,Urine Negative (Negative); Benzodiazepines Screen,Urine Negative (Negative); Cannabinoid Screen,Urine Negative (Negative); Opiate Screen,Urine Negative (Negative); Phencyclidine Screen,Urine Negative (Negative)
[2017-02-24] MEDS ORDERED: guaiFENesin 200 MG/10 ML UDCUP PO PRN (20:34)
[2017-02-24] MEDS ORDERED: ALUMINUM/MAGNES/SIMETH MAX STR 30 ML UDCUP PO PRN (20:34)
[2017-02-24] MEDS ORDERED: LOPERAMIDE 2 MG CAPSULE PO PRN ×2 (20:34)
[2017-02-24] MEDS ORDERED: MAGNESIUM HYDROXIDE SUSP 30 ML UDCUP PO PRN (20:34)
[2017-02-24] MEDS ORDERED: LACTULOSE 20 GM/30 ML UDCUP PO PRN (20:34)
[2017-02-24] MEDS ORDERED: MYLANTA/LIDO VISC 2:1 300 ML BOTTLE SWISH/SWAL PRN (20:34)
[2017-02-24] MEDS ORDERED: MYLANTA/LIDO VISC 2:1 300 ML BOTTLE SWISH/SPIT PRN (20:34)
[2017-02-24] MEDS ORDERED: ONDANSETRON 4 MG/2 ML VIAL IV PRN (20:34)
[2017-02-24] MEDS ORDERED: DEXTROSE 5% NACL 0.45% 1,000 ML IV SCH (21:00)
[2017-02-24 21:13] LABS: Band Neutrophils 3 % (0-10); Lymphocytes 28 % (20-55); Platelet Estimate Normal; Segmented Neutrophils 62 % (50-85); Total Cells Counted 100
[2017-02-24 22:14] LABS: Uric Acid 7.4 MG/DL (2.6-6.0)
[2017-02-25 01:16] LABS: Basophils # 0.1 10*3/uL (0.0-0.2); Basophils % 0.6 % (0.0-0.8); Hematocrit 30.2 VOL% (35.7-47.0); Hemoglobin 9.9 GM/DL (12.0-16.0); Immature Granulocytes % 0.1 %; Immature Granulocytes Absolute 0.01 #; Lymphocytes # 3.3 10*3/uL (1.4-4.0); Lymphocytes % 41.3 % (21.3-54.2); Mean Corpuscular HGB Conc 32.8 GM/DL (32-36); Mean Corpuscular Hemoglobin 30 PG (27-34); Mean Corpuscular Volume 90.7 FL (87-102); Mean Platelet Volume 11.4 FL (9.6-12.0); Monocytes # 1.8 10*3/uL (0.11-0.8); Monocytes % 22.3 % (1.7-12.7); Neutrophils # 2.9 10*3/uL (1.4-7.4); Neutrophils % 35.7 % (38.7-73.9); Platelet Count 202 T/CUMM (130-400); Red Blood Count 3.33 MC/CUMM (3.8-5.5); Red Cell Distribution Width 14.6 % (9.3-17.3); White Blood Count 8.1 T/CUMM (4-12)
[2017-02-25 02:20] LABS: Lymphocytes 28 % (20-55); Segmented Neutrophils 52 % (50-85); Total Cells Counted 100
[2017-02-25 02:21] LABS: Burr Cells Slight; Platelet Estimate Adequate; Smudge Cells Few; Target Cells Slight
[2017-02-25] MEDS ORDERED: ONDANSETRON 4 MG TABLET PO PRN (09:19)
[2017-02-25 12:40] LABS: ABG Base Excess 0.3 MMOL/L (-2.5-2.5); ABG HCO3 24.7 MMOL/L (20-26); ABG Oxygen Saturation 96.1 % (95-100); ABG PCO2 38.4 MM HG (35-48); ABG PH 7.416 (7.35-7.45); ABG PO2 77.7 MM HG (80-95); ABG TCO2 22.5 MMOL/L (23-27)
[2017-02-25] MEDS: LACTULOSE 20 GM/30 ML UDCUP PO SCH ×2 (13:49→21:14)
[2017-02-25] MEDS: FLUoxetine 20 MG CAPSULE PO SCH (21:13)
[2017-02-25] MEDS: MAGNESIUM CHLORIDE 64 MG TABLET PO SCH (21:14)
[2017-02-25] MEDS: FAMOTIDINE 20 MG TABLET PO SCH (21:14)
[2017-02-25] MEDS: RIFAXIMIN 550 MG TABLET PO SCH (21:14)
[2017-02-26 05:17] LABS: Basophils # 0.1 10*3/uL (0.0-0.2); Basophils % 0.8 % (0.0-0.8); Hematocrit 29.5 VOL% (35.7-47.0); Hemoglobin 9.7 GM/DL (12.0-16.0); Immature Granulocytes % 0.3 %; Immature Granulocytes Absolute 0.02 #; Lymphocytes # 3.5 10*3/uL (1.4-4.0); Lymphocytes % 46.1 % (21.3-54.2); Mean Corpuscular HGB Conc 32.9 GM/DL (32-36); Mean Corpuscular Hemoglobin 30 PG (27-34); Mean Corpuscular Volume 90.8 FL (87-102); Mean Platelet Volume 11.6 FL (9.6-12.0); Monocytes # 1.7 10*3/uL (0.11-0.8); Neutrophils # 2.2 10*3/uL (1.4-7.4); Neutrophils % 29.8 % (38.7-73.9); Platelet Count 200 T/CUMM (130-400); Red Blood Count 3.25 MC/CUMM (3.8-5.5); Red Cell Distribution Width 14.3 % (9.3-17.3); White Blood Count 7.5 T/CUMM (4-12)
[2017-02-26 07:52] LABS: Hypochromasia 1+; Lymphocytes 45 % (20-55); Segmented Neutrophils 38 % (50-85); Total Cells Counted 100
[2017-02-26 07:53] LABS: Platelet Estimate Normal
[2017-02-26] MEDS: THYROID 60 MG TABLET PO SCH (08:50)
[2017-02-26] MEDS: MAGNESIUM CHLORIDE 64 MG TABLET PO SCH ×2 (08:50→21:03)
[2017-02-26] MEDS: FLUDROCORTISONE 0.1 MG TABLET PO SCH (08:50)
[2017-02-26] MEDS: LACTULOSE 20 GM/30 ML UDCUP PO SCH ×2 (08:50→21:17)
[2017-02-26] MEDS: DIGOXIN 0.125 MG TABLET PO SCH (08:50)
[2017-02-26] MEDS: cloNIDine 0.1 MG TABLET PO PRN (08:51)
[2017-02-26] MEDS: FAMOTIDINE 20 MG TABLET PO SCH ×2 (08:51→21:04)
[2017-02-26] MEDS: RIFAXIMIN 550 MG TABLET PO SCH ×2 (08:51→21:04)
[2017-02-26] MEDS ORDERED: FLUDROCORTISONE 0.1 MG TABLET PO SCH (09:00)
[2017-02-26] MEDS: amLODIPine 5 MG TABLET PO SCH (13:37)
[2017-02-26] MEDS: LACTULOSE 20 GM/30 ML UDCUP PO PRN ×2 (14:02→18:00)
[2017-02-26] MEDS ORDERED: LACTULOSE 20 GM/30 ML UDCUP PO ONE (21:00)
[2017-02-26] MEDS: FLUoxetine 20 MG CAPSULE PO SCH (21:04)
[2017-02-27] MEDS: cloNIDine 0.1 MG TABLET PO PRN (00:55)
[2017-02-27 05:22] LABS: Free T4 (Free Thyroxine) 1.22 NG/DL (0.76-1.46); Thyroid Stimulating Hormone 0.312 uIU/ml (0.358-3.74)
[2017-02-27 08:49] VITALS: BP 158/74
[2017-02-27] MEDS: MAGNESIUM CHLORIDE 64 MG TABLET PO SCH (09:00)
[2017-02-27] MEDS: LACTULOSE 20 GM/30 ML UDCUP PO SCH (09:00)
[2017-02-27] MEDS: THYROID 60 MG TABLET PO SCH (09:00)
[2017-02-27] MEDS: amLODIPine 5 MG TABLET PO SCH (09:00)
[2017-02-27] MEDS: FLUDROCORTISONE 0.1 MG TABLET PO SCH (09:00)
[2017-02-27] MEDS: DIGOXIN 0.125 MG TABLET PO SCH (09:01)
[2017-02-27] MEDS: FAMOTIDINE 20 MG TABLET PO SCH (09:01)
[2017-02-27] MEDS: RIFAXIMIN 550 MG TABLET PO SCH (09:01)
[2017-02-27] MEDS ORDERED: HEPARIN LOCK FLUSH 500 UNIT/5 ML SYRINGE IV ONE (10:15)
== END 2017-02-27 10:46 | disposition home or self-care (01) | DRG 71 ==
LOC: N.EDINP 18:55 → N.ED 18:55 → N.4E 21:10
PROVIDERS: ADMIT Specialist; ATTEND Specialist

== ENCOUNTER 2018-03-27 19:14 | Inpatient (IN) ==
[2018-03-27] MEDS ORDERED: SODIUM CHLORIDE 0.9% 500 ML IV STA (21:29)
[2018-03-27 22:45] LABS: Basophils % 0.5 % (0.0-0.8); Eosinophils # 0.4 10*3/uL (0.0-0.87); Eosinophils % 5.1 % (0.00-10.9); Hematocrit 34.1 VOL% (35.7-47.0); Hemoglobin 10.9 GM/DL (12.0-16.0); Immature Granulocytes % 0.3 %; Immature Granulocytes Absolute 0.02 #; Lymphocytes # 2.3 10*3/uL (1.4-4.0); Lymphocytes % 29.6 % (21.3-54.2); Mean Corpuscular Hemoglobin 33 PG (27-34); Mean Corpuscular Volume 102.1 FL (87-102); Mean Platelet Volume 10.7 FL (9.6-12.0); Monocytes # 1.4 10*3/uL (0.11-0.8); Monocytes % 17.9 % (1.7-12.7); Neutrophils # 3.7 10*3/uL (1.4-7.4); Neutrophils % 46.6 % (38.7-73.9); Platelet Count 187 T/CUMM (130-400); Red Blood Count 3.34 MC/CUMM (3.8-5.5); Red Cell Distribution Width 13.3 % (9.3-17.3); White Blood Count 7.8 T/CUMM (4-12)
[2018-03-27 22:52] LABS: PT Patient Result 10.6 SECS
[2018-03-27 23:14] LABS: Apearance,Urine Slightly Hazy (Clear); Bacteria,Urine Moderate /HPF (Few); Bilirubin,Urine Negative (Negative); Blood, Urine Small mg/dL (Negative); Glucose,Urine (UA) Negative (Negative); Ketones,Urine Negative (Negative); Mucus,Urine Occasional /LPF (Occasional); Nitrite,Urine Negative (Negative); Protein,Urine >=500 MG/DL; RBC,Urine 2 /HPF (0-4); Squamous Epithelial Cell,Urine Occasional /HPF (0-10); Urine Color Yellow (Yellow); Urine Specific Gravity 1.017 (1.001-1.035); Urine Urobilinogen < 2.0 EU/DL (0.2-1.0); WBC,Urine 14 /HPF (0-6)
[2018-03-27 23:16] LABS: Albumin 2.8 G/DL (3.4-5.0); Bilirubin,Total 0.8 MG/DL (0.2-1.0); Calcium 9.7 MG/DL (8.5-10.1); Potassium 4.2 MMOL/L (3.5-5.1); Total Protein 7.2 G/DL (6.4-8.3)
[2018-03-27] MEDS ORDERED: cefTRIAXone 1,000 MG in SODIUM CHLORIDE 0.9% 100 ML IV STA (23:21)
[2018-03-27 23:33] LABS: Barbiturates Screen,Urine Negative (Negative); Benzodiazepines Screen,Urine Negative (Negative); Cannabinoid Screen,Urine Negative (Negative); Opiate Screen,Urine Negative (Negative); Phencyclidine Screen,Urine Negative (Negative)
[2018-03-28 01:10] LABS: ABG Base Excess -6.2 MMOL/L (-2.5-2.5); ABG HCO3 19.3 MMOL/L (20-26); ABG Oxygen Saturation 98.4 % (95-100); ABG PCO2 30.3 MM HG (35-48); ABG PH 7.381 (7.35-7.45); ABG TCO2 16.4 MMOL/L (23-27)
[2018-03-28 01:11] LABS: Allen Test Positive; Pt O2 Delivery Device Room Air
[2018-03-28] MEDS ORDERED: GLUCAGON 1 MG VIAL IM PRN (01:18)
[2018-03-28] MEDS ORDERED: DEXTROSE 50% 25 GM/50 ML VIAL IV PRN (01:18)
[2018-03-28] MEDS: LACTULOSE 20 GM/30 ML UDCUP PO SCH ×3 (06:25→19:21)
[2018-03-28] MEDS: HEPARIN 5,000 UNIT/1 ML VIAL SUBCUT SCH ×3 (06:25→21:25)
[2018-03-28 08:40] LABS: Basophils % 0.6 % (0.0-0.8); Eosinophils # 0.5 10*3/uL (0.0-0.87); Eosinophils % 7.5 % (0.00-10.9); Hematocrit 31.9 VOL% (35.7-47.0); Hemoglobin 10.2 GM/DL (12.0-16.0); Immature Granulocytes % 0.4 %; Immature Granulocytes Absolute 0.03 #; Lymphocytes # 1.6 10*3/uL (1.4-4.0); Lymphocytes % 23.4 % (21.3-54.2); Mean Corpuscular Hemoglobin 32 PG (27-34); Mean Corpuscular Volume 100.3 FL (87-102); Mean Platelet Volume 10.5 FL (9.6-12.0); Monocytes % 14.2 % (1.7-12.7); Neutrophils # 3.7 10*3/uL (1.4-7.4); Neutrophils % 53.9 % (38.7-73.9); Platelet Count 182 T/CUMM (130-400); Red Blood Count 3.18 MC/CUMM (3.8-5.5); Red Cell Distribution Width 13.2 % (9.3-17.3); White Blood Count 6.9 T/CUMM (4-12)
[2018-03-28 09:06] LABS: Albumin 2.5 G/DL (3.4-5.0); Bilirubin,Total 0.6 MG/DL (0.2-1.0); Calcium 9.6 MG/DL (8.5-10.1); Osmolality,Calculated 293.8 MOS/KG (273-304); Potassium 3.9 MMOL/L (3.5-5.1); Total Protein 6.5 G/DL (6.4-8.3)
[2018-03-28] MEDS: MAGNESIUM CHLORIDE 64 MG TABLET PO SCH ×2 (10:19→21:24)
[2018-03-28] MEDS: DIGOXIN 0.125 MG TABLET PO SCH (10:20)
[2018-03-28] MEDS: amLODIPine 5 MG TABLET PO SCH (10:20)
[2018-03-28] MEDS: RIFAXIMIN 550 MG TABLET PO SCH ×2 (10:20→21:25)
[2018-03-28] MEDS: FAMOTIDINE 20 MG TABLET PO SCH ×2 (10:21→21:25)
[2018-03-28] MEDS: THYROID 60 MG TABLET PO SCH (10:21)
[2018-03-28] MEDS: INSULIN LISPRO 100 UNIT/ML SUBCUT SCH ×2 (10:29→19:22)
[2018-03-28] MEDS ORDERED: MAGNESIUM SULF RIDER 2 GM in PREMIX 1 EACH IV ONE (15:00)
[2018-03-28] MEDS ORDERED: PROMETHAZINE INJ 25 MG in SODIUM CHLORIDE 0.9% 50 ML IV PRN (17:38)
[2018-03-28] MEDS: SODIUM CHLORIDE 0.9% 1,000 ML IV SCH (17:59)
[2018-03-28] MEDS: ALBUTEROL/IPRATROPIUM 3 ML NEB RESP TX SCH (20:13)
[2018-03-28] MEDS: FLUoxetine 20 MG CAPSULE PO SCH (21:25)
[2018-03-28] MEDS: MIRTAZAPINE 15 MG TABLET PO SCH (23:56)
[2018-03-29] MEDS: cefTRIAXone 1,000 MG in SYRINGE 1 EACH IV SCH ×2 (00:01→23:12)
[2018-03-29] MEDS: ALBUTEROL/IPRATROPIUM 3 ML NEB RESP TX SCH ×4 (01:09→19:55)
[2018-03-29] MEDS: SODIUM CHLORIDE 0.9% 1,000 ML IV SCH ×2 (01:15→17:49)
[2018-03-29] MEDS: LACTULOSE 20 GM/30 ML UDCUP PO SCH ×3 (01:15→20:59)
[2018-03-29] MEDS: HEPARIN 5,000 UNIT/1 ML VIAL SUBCUT SCH ×3 (04:15→21:00)
[2018-03-29 08:08] LABS: Basophils % 0.4 % (0.0-0.8); Eosinophils # 0.5 10*3/uL (0.0-0.87); Eosinophils % 5.4 % (0.00-10.9); Hematocrit 27.3 VOL% (35.7-47.0); Hemoglobin 8.8 GM/DL (12.0-16.0); Immature Granulocytes % 0.3 %; Immature Granulocytes Absolute 0.03 #; Lymphocytes # 3.7 10*3/uL (1.4-4.0); Mean Corpuscular HGB Conc 32.2 GM/DL (32-36); Mean Corpuscular Hemoglobin 33 PG (27-34); Mean Corpuscular Volume 101.9 FL (87-102); Monocytes # 1.5 10*3/uL (0.11-0.8); Monocytes % 16.1 % (1.7-12.7); Neutrophils # 3.7 10*3/uL (1.4-7.4); Neutrophils % 38.8 % (38.7-73.9); Platelet Count 168 T/CUMM (130-400); Red Blood Count 2.68 MC/CUMM (3.8-5.5); Red Cell Distribution Width 13.3 % (9.3-17.3); White Blood Count 9.5 T/CUMM (4-12)
[2018-03-29 08:27] LABS: Calcium 8.9 MG/DL (8.5-10.1); Osmolality,Calculated 293.8 MOS/KG (273-304)
[2018-03-29 09:02] LABS: Eosinophils 4 % (0-10); Lymphocytes 30 % (20-55); Segmented Neutrophils 54 % (50-85); Total Cells Counted 100
[2018-03-29 09:03] LABS: Macrocytosis Slight
[2018-03-29 09:04] LABS: Atypical Lymphocytes Few
[2018-03-29 09:05] LABS: Hypochromasia Slight
[2018-03-29] MEDS: amLODIPine 5 MG TABLET PO SCH (09:48)
[2018-03-29] MEDS: RIFAXIMIN 550 MG TABLET PO SCH ×2 (09:49→20:59)
[2018-03-29] MEDS: THYROID 60 MG TABLET PO SCH (09:49)
[2018-03-29] MEDS: DIGOXIN 0.125 MG TABLET PO SCH (09:52)
[2018-03-29] MEDS: MAGNESIUM CHLORIDE 64 MG TABLET PO SCH ×2 (09:53→20:59)
[2018-03-29] MEDS: FAMOTIDINE 20 MG TABLET PO SCH ×2 (09:53→21:00)
[2018-03-29] MEDS: INSULIN LISPRO 100 UNIT/ML SUBCUT SCH ×2 (09:53→17:50)
[2018-03-29] MEDS: FLUoxetine 20 MG CAPSULE PO SCH (20:59)
[2018-03-29] MEDS: MIRTAZAPINE 15 MG TABLET PO SCH (21:00)
[2018-03-30] MEDS: ALBUTEROL/IPRATROPIUM 3 ML NEB RESP TX SCH ×3 (00:05→13:00)
[2018-03-30] MEDS: HEPARIN 5,000 UNIT/1 ML VIAL SUBCUT SCH ×2 (03:49→13:52)
[2018-03-30] MEDS: SODIUM CHLORIDE 0.9% 1,000 ML IV SCH ×2 (03:49→09:51)
[2018-03-30 05:00] LABS: Basophils # 0.1 10*3/uL (0.0-0.2); Basophils % 0.5 % (0.0-0.8); Eosinophils # 0.7 10*3/uL (0.0-0.87); Hematocrit 23.8 VOL% (35.7-47.0); Hemoglobin 7.6 GM/DL (12.0-16.0); Immature Granulocytes % 0.5 %; Immature Granulocytes Absolute 0.06 #; Lymphocytes # 3.9 10*3/uL (1.4-4.0); Lymphocytes % 32.3 % (21.3-54.2); Mean Corpuscular HGB Conc 31.9 GM/DL (32-36); Mean Corpuscular Hemoglobin 33 PG (27-34); Mean Corpuscular Volume 103.9 FL (87-102); Monocytes # 2.3 10*3/uL (0.11-0.8); Neutrophils % 41.7 % (38.7-73.9); Platelet Count 157 T/CUMM (130-400); Red Blood Count 2.29 MC/CUMM (3.8-5.5); Red Cell Distribution Width 13.6 % (9.3-17.3); White Blood Count 11.9 T/CUMM (4-12)
[2018-03-30 05:17] LABS: Calcium 8.8 MG/DL (8.5-10.1); Osmolality,Calculated 294.7 MOS/KG (273-304); Potassium 3.6 MMOL/L (3.5-5.1)
[2018-03-30 05:42] LABS: Eosinophils 8 % (0-10); Hypochromasia Slight; Lymphocytes 21 % (20-55); Platelet Estimate Decreased; Polychromasia Few; Segmented Neutrophils 61 % (50-85); Total Cells Counted 100
[2018-03-30 06:29] LABS: % Iron Saturation 20.8 % (18-50)
[2018-03-30] MEDS: INSULIN LISPRO 100 UNIT/ML SUBCUT SCH ×2 (08:13→18:33)
[2018-03-30] MEDS ORDERED: amLODIPine 10 MG TABLET PO SCH (09:00)
[2018-03-30] MEDS ORDERED: SODIUM CHLORIDE 0.9% 1,000 ML IV PRN (09:10)
[2018-03-30] MEDS ORDERED: CEFUROXIME 250 MG TABLET PO SCH (09:30)
[2018-03-30] MEDS: THYROID 60 MG TABLET PO SCH (09:52)
[2018-03-30] MEDS: MAGNESIUM CHLORIDE 64 MG TABLET PO SCH (09:52)
[2018-03-30] MEDS: RIFAXIMIN 550 MG TABLET PO SCH (09:52)
[2018-03-30] MEDS: FAMOTIDINE 20 MG TABLET PO SCH (09:52)
[2018-03-30] MEDS: DIGOXIN 0.125 MG TABLET PO SCH (09:52)
[2018-03-30] MEDS: LACTULOSE 20 GM/30 ML UDCUP PO SCH (09:53)
[2018-03-30] MEDS ORDERED: HEPARIN LOCK FLUSH 500 UNIT/5 ML SYRINGE IV ONE (17:33)
[2018-03-30 17:44] VITALS: BP 183/79
[2018-03-30 18:29] LABS: Hematocrit 32.4 VOL% (35.7-47.0)
[2018-03-30 18:37] LABS: Hemoglobin 10.7 GM/DL (12.0-16.0)
== END 2018-03-30 18:49 | disposition home or self-care (01) | DRG 690 ==
LOC: N.ED 19:14 → N.EDINP 03-28 00:34 → SUATTDRO 03-28 00:34 → N.4E 03-28 01:49
PROVIDERS: ADMIT Internal Medicine; ATTEND Internal Medicine

== ENCOUNTER 2018-06-23 07:43 | Inpatient (IN) ==
[2018-06-23] MEDS ORDERED: ONDANSETRON 4 MG/2 ML VIAL IV STA (08:06)
[2018-06-23] MEDS ORDERED: SODIUM CHLORIDE 0.9% 1,000 ML IV STA (08:06)
[2018-06-23] MEDS ORDERED: PANTOPRAZOLE 40 MG VIAL IV STA (08:06)
[2018-06-23 08:48] LABS: Basophils # 0.1 10*3/uL (0.0-0.2); Basophils % 0.5 % (0.0-0.8); Eosinophils # 0.5 10*3/uL (0.0-0.87); Eosinophils % 4.5 % (0.00-10.9); Hematocrit 31.7 VOL% (35.7-47.0); Immature Granulocytes % 0.4 %; Immature Granulocytes Absolute 0.04 #; Lymphocytes # 2.2 10*3/uL (1.4-4.0); Lymphocytes % 20.4 % (21.3-54.2); Mean Corpuscular HGB Conc 31.5 GM/DL (32-36); Mean Corpuscular Hemoglobin 33 PG (27-34); Mean Corpuscular Volume 102.9 FL (87-102); Mean Platelet Volume 10.6 FL (9.6-12.0); Monocytes # 1.6 10*3/uL (0.11-0.8); Monocytes % 14.9 % (1.7-12.7); Neutrophils # 6.5 10*3/uL (1.4-7.4); Neutrophils % 59.3 % (38.7-73.9); Platelet Count 174 T/CUMM (130-400); Red Blood Count 3.08 MC/CUMM (3.8-5.5); Red Cell Distribution Width 14.5 % (9.3-17.3); White Blood Count 10.9 T/CUMM (4-12)
[2018-06-23 09:09] LABS: Albumin 2.4 G/DL (3.4-5.0); Bilirubin,Total 0.7 MG/DL (0.2-1.0); Calcium 9.4 MG/DL (8.5-10.1); Osmolality,Calculated 301.7 MOS/KG (273-304); Potassium 4.3 MMOL/L (3.5-5.1); Total Protein 6.4 G/DL (6.4-8.3)
[2018-06-23 09:35] LABS: Amorphous Crystals,Urine Few /HPF (Few); Apearance,Urine CLOUDY (Clear); Bilirubin,Urine Negative (Negative); Blood, Urine Moderate mg/dL (Negative); Glucose,Urine (UA) Negative (Negative); Ketones,Urine Negative (Negative); Nitrite,Urine Negative (Negative); Protein,Urine >=500 MG/DL; RBC,Urine 5 /HPF (0-4); Urine Color Amber (Yellow); Urine Specific Gravity 1.015 (1.001-1.035); Urine Urobilinogen < 2.0 EU/DL (0.2-1.0)
[2018-06-23 10:32] LABS: Folate 6.6 NG/ML (5.4-24.0)
[2018-06-23] MEDS ORDERED: ONDANSETRON 4 MG/2 ML VIAL IV PRN (11:16)
[2018-06-23] MEDS ORDERED: MORPHINE 4 MG/1 ML VIAL IV PRN (11:16)
[2018-06-23] MEDS: SODIUM CHLORIDE 0.9% 1,000 ML IV SCH ×2 (11:36→21:29)
[2018-06-23 12:15] LABS: Hematocrit 29.5 VOL% (35.7-47.0); Hemoglobin 9.3 GM/DL (12.0-16.0)
[2018-06-23] MEDS: hydrALAZINE 20 MG/1 ML VIAL IV PRN (16:55)
[2018-06-23] MEDS ORDERED: LACTULOSE 20 GM/30 ML UDCUP PO PRN (18:29)
[2018-06-23] MEDS ORDERED: GLUCAGON 1 MG VIAL IM PRN (18:31)
[2018-06-23] MEDS ORDERED: DEXTROSE 50% 25 GM/50 ML SYRINGE IV PRN (18:31)
[2018-06-23 19:48] LABS: Hematocrit 28.4 VOL% (35.7-47.0); Hemoglobin 8.9 GM/DL (12.0-16.0)
[2018-06-23] MEDS: CHOLECALCIFEROL 5,000 UNIT TABLET PO SCH (21:28)
[2018-06-23] MEDS: FLUoxetine 20 MG CAPSULE PO SCH (21:28)
[2018-06-23] MEDS: PANTOPRAZOLE 40 MG VIAL IV SCH (21:28)
[2018-06-23] MEDS: INSULIN GLARGINE 100 UNIT/ML SUBCUT SCH (21:28)
[2018-06-23] MEDS: RIFAXIMIN 550 MG TABLET PO SCH (21:28)
[2018-06-23] MEDS: ACETAMINOPHEN 325 MG TABLET PO PRN (22:34)
[2018-06-24] MEDS ORDERED: SODIUM CHLORIDE 0.9% 1,000 ML IV SCH (01:30)
[2018-06-24 01:44] LABS: Basophils # 0.1 10*3/uL (0.0-0.2); Basophils % 0.4 % (0.0-0.8); Eosinophils # 0.3 10*3/uL (0.0-0.87); Eosinophils % 2.1 % (0.00-10.9); Hematocrit 28.9 VOL% (35.7-47.0); Hemoglobin 9.1 GM/DL (12.0-16.0); Immature Granulocytes % 0.5 %; Immature Granulocytes Absolute 0.06 #; Lymphocytes # 2.6 10*3/uL (1.4-4.0); Lymphocytes % 21.3 % (21.3-54.2); Mean Corpuscular HGB Conc 31.5 GM/DL (32-36); Mean Corpuscular Hemoglobin 33 PG (27-34); Mean Corpuscular Volume 103.6 FL (87-102); Mean Platelet Volume 10.5 FL (9.6-12.0); Monocytes % 16.3 % (1.7-12.7); Neutrophils # 7.3 10*3/uL (1.4-7.4); Neutrophils % 59.4 % (38.7-73.9); Platelet Count 171 T/CUMM (130-400); Red Blood Count 2.79 MC/CUMM (3.8-5.5); Red Cell Distribution Width 14.6 % (9.3-17.3); White Blood Count 12.3 T/CUMM (4-12)
[2018-06-24 01:56] LABS: PT Patient Result 10.9 SECS; Partial Thromboplastin Time 23.7 SECS (0-40)
[2018-06-24 02:07] LABS: Albumin 2.3 G/DL (3.4-5.0); Bilirubin,Total 0.9 MG/DL (0.2-1.0); Calcium 8.7 MG/DL (8.5-10.1); Osmolality,Calculated 300.6 MOS/KG (273-304); Potassium 4.5 MMOL/L (3.5-5.1)
[2018-06-24 02:21] LABS: Eosinophils 2 % (0-10); Lymphocytes 23 % (20-55); Segmented Neutrophils 62 % (50-85); Total Cells Counted 100
[2018-06-24 02:29] LABS: Howell-Jolly Bodies Few
[2018-06-24 02:30] LABS: Anisocytosis 1+; Burr Cells Few; Helmet Cells Few; Microcytosis 1+; Platelet Estimate Normal
[2018-06-24 05:06] LABS: Basophils # 0.1 10*3/uL (0.0-0.2); Basophils % 0.5 % (0.0-0.8); Eosinophils # 0.4 10*3/uL (0.0-0.87); Eosinophils % 2.9 % (0.00-10.9); Hematocrit 27.1 VOL% (35.7-47.0); Hemoglobin 8.4 GM/DL (12.0-16.0); Immature Granulocytes % 0.5 %; Immature Granulocytes Absolute 0.06 #; Lymphocytes # 2.4 10*3/uL (1.4-4.0); Lymphocytes % 18.6 % (21.3-54.2); Mean Corpuscular Hemoglobin 33 PG (27-34); Mean Corpuscular Volume 107.1 FL (87-102); Mean Platelet Volume 10.6 FL (9.6-12.0); Monocytes # 2.3 10*3/uL (0.11-0.8); Monocytes % 18.2 % (1.7-12.7); Neutrophils # 7.7 10*3/uL (1.4-7.4); Neutrophils % 59.3 % (38.7-73.9); Platelet Count 156 T/CUMM (130-400); Red Blood Count 2.53 MC/CUMM (3.8-5.5); Red Cell Distribution Width 14.5 % (9.3-17.3); White Blood Count 12.9 T/CUMM (4-12)
[2018-06-24] MEDS: INSULIN LISPRO 100 UNIT/ML SUBCUT SCH ×7 (05:07→23:08)
[2018-06-24] MEDS: SODIUM CHLORIDE 0.9% 1,000 ML IV SCH (05:07)
[2018-06-24 05:31] LABS: Albumin 2.2 G/DL (3.4-5.0); Bilirubin,Total 0.9 MG/DL (0.2-1.0); Calcium 8.3 MG/DL (8.5-10.1); Osmolality,Calculated 302.4 MOS/KG (273-304); Potassium 4.5 MMOL/L (3.5-5.1); Risk Ratio 4.92; Thyroid Stimulating Hormone 3.02 uIU/ml (0.358-3.74); Total Protein 5.6 G/DL (6.4-8.3); VLDL CHOLESTEROL 27.6 MG/DL
[2018-06-24 05:52] LABS: Eosinophils 3 % (0-10); Hypochromasia 1+; Lymphocytes 13 % (20-55); Ovalocytes Slight; Platelet Estimate Adequate; Segmented Neutrophils 72 % (50-85); Total Cells Counted 100
[2018-06-24 05:53] LABS: Howell-Jolly Bodies Few; Microcytosis 1+
[2018-06-24] MEDS ORDERED: SODIUM PHOSPHATE ENEMA 133 ML BOTTLE RECTAL ONE (06:00)
[2018-06-24] MEDS ORDERED: PROPOFOL 200 MG/20 ML VIAL IV ONE (09:00)
[2018-06-24] MEDS ORDERED: LIDOCAINE 2% 5 ML VIAL ONE (09:00)
[2018-06-24] MEDS: hydrALAZINE 20 MG/1 ML VIAL IV PRN (09:22)
[2018-06-24 12:12] LABS: Cancer Antigen 19-9 170.7 U/ML (0-37)
[2018-06-24] MEDS: THYROID 60 MG TABLET PO SCH (12:35)
[2018-06-24] MEDS: PANTOPRAZOLE 40 MG VIAL IV SCH ×2 (12:35→21:44)
[2018-06-24] MEDS: CHOLECALCIFEROL 5,000 UNIT TABLET PO SCH ×2 (12:36→21:44)
[2018-06-24] MEDS: amLODIPine 5 MG TABLET PO SCH (12:36)
[2018-06-24] MEDS: RIFAXIMIN 550 MG TABLET PO SCH ×2 (12:36→21:44)
[2018-06-24] MEDS: DIGOXIN 0.125 MG TABLET PO SCH (12:36)
[2018-06-24] MEDS ORDERED: DEXTROSE 50% 25 GM/50 ML VIAL IV PRN (16:01)
[2018-06-24] MEDS ORDERED: GLUCAGON 1 MG VIAL IM PRN (16:01)
[2018-06-24 16:19] LABS: Amorphous Crystals,Urine Occasional /HPF (Few); Apearance,Urine CLOUDY (Clear); Bilirubin,Urine Negative (Negative); Blood, Urine Moderate mg/dL (Negative); Glucose,Urine (UA) Negative (Negative); Ketones,Urine Negative (Negative); Mucus,Urine Occasional /LPF (Occasional); Nitrite,Urine Negative (Negative); Protein,Urine >=500 MG/DL; RBC,Urine 4 /HPF (0-4); Squamous Epithelial Cell,Urine Occasional /HPF (0-10); Urine Color Yellow (Yellow); Urine Specific Gravity 1.013 (1.001-1.035); Urine Urobilinogen < 2.0 EU/DL (0.2-1.0); WBC,Urine 3 /HPF (0-6)
[2018-06-24] MEDS ORDERED: SODIUM BICARB INJ 50 MEQ in DEXTROSE 5% NACL 0.45% 1,000 ML IV SCH (16:30)
[2018-06-24] MEDS: ACETAMINOPHEN 325 MG TABLET PO PRN (21:43)
[2018-06-24] MEDS: FLUoxetine 20 MG CAPSULE PO SCH (21:44)
[2018-06-24] MEDS: INSULIN GLARGINE 100 UNIT/ML SUBCUT SCH (21:50)
[2018-06-25] MEDS: INSULIN LISPRO 100 UNIT/ML SUBCUT SCH ×6 (04:40→23:51)
[2018-06-25 05:13] LABS: Basophils % 0.2 % (0.0-0.8); Eosinophils # 0.5 10*3/uL (0.0-0.87); Hematocrit 25.9 VOL% (35.7-47.0); Hemoglobin 8.2 GM/DL (12.0-16.0); Immature Granulocytes % 0.4 %; Immature Granulocytes Absolute 0.05 #; Lymphocytes % 15.7 % (21.3-54.2); Mean Corpuscular HGB Conc 31.7 GM/DL (32-36); Mean Corpuscular Hemoglobin 33 PG (27-34); Mean Corpuscular Volume 102.8 FL (87-102); Mean Platelet Volume 11.2 FL (9.6-12.0); Monocytes # 2.5 10*3/uL (0.11-0.8); Monocytes % 19.1 % (1.7-12.7); Neutrophils # 7.8 10*3/uL (1.4-7.4); Neutrophils % 60.6 % (38.7-73.9); Platelet Count 155 T/CUMM (130-400); Red Blood Count 2.52 MC/CUMM (3.8-5.5); Red Cell Distribution Width 14.5 % (9.3-17.3); White Blood Count 12.9 T/CUMM (4-12)
[2018-06-25 05:34] LABS: Bilirubin,Total 0.9 MG/DL (0.2-1.0); Calcium 8.4 MG/DL (8.5-10.1); Osmolality,Calculated 297.8 MOS/KG (273-304); Total Protein 5.5 G/DL (6.4-8.3)
[2018-06-25 06:36] LABS: Eosinophils 6 % (0-10); Hypochromasia Slight; Lymphocytes 16 % (20-55); Microcytosis Slight; Ovalocytes Slight; Platelet Estimate Normal; Segmented Neutrophils 63 % (50-85); Total Cells Counted 100
[2018-06-25] MEDS ORDERED: SODIUM BICARB INJ 50 MEQ in DEXTROSE 5% NACL 0.45% 1,000 ML IV SCH (11:00)
[2018-06-25] MEDS: RIFAXIMIN 550 MG TABLET PO SCH ×2 (13:55→21:35)
[2018-06-25] MEDS: CHOLECALCIFEROL 5,000 UNIT TABLET PO SCH ×2 (13:55→23:50)
[2018-06-25] MEDS: DIGOXIN 0.125 MG TABLET PO SCH (13:55)
[2018-06-25] MEDS: THYROID 60 MG TABLET PO SCH (13:55)
[2018-06-25] MEDS: amLODIPine 5 MG TABLET PO SCH (13:55)
[2018-06-25] MEDS: PANTOPRAZOLE 40 MG VIAL IV SCH ×2 (13:56→21:35)
[2018-06-25] MEDS: SODIUM BICARB INJ 100 MEQ in DEXTROSE 5% 1,000 ML IV SCH (18:50)
[2018-06-25] MEDS: FLUoxetine 20 MG CAPSULE PO SCH (21:35)
[2018-06-25] MEDS: INSULIN GLARGINE 100 UNIT/ML SUBCUT SCH (21:50)
[2018-06-26 06:33] LABS: Basophils % 0.2 % (0.0-0.8); Eosinophils # 0.5 10*3/uL (0.0-0.87); Eosinophils % 3.8 % (0.00-10.9); Hemoglobin 9.4 GM/DL (12.0-16.0); Immature Granulocytes % 0.6 %; Immature Granulocytes Absolute 0.08 #; Lymphocytes # 2.1 10*3/uL (1.4-4.0); Lymphocytes % 15.3 % (21.3-54.2); Mean Corpuscular HGB Conc 31.3 GM/DL (32-36); Mean Corpuscular Hemoglobin 33 PG (27-34); Mean Corpuscular Volume 104.5 FL (87-102); Mean Platelet Volume 11.7 FL (9.6-12.0); Monocytes # 2.7 10*3/uL (0.11-0.8); Monocytes % 19.9 % (1.7-12.7); Neutrophils # 8.2 10*3/uL (1.4-7.4); Neutrophils % 60.2 % (38.7-73.9); Platelet Count 143 T/CUMM (130-400); Red Blood Count 2.87 MC/CUMM (3.8-5.5); Red Cell Distribution Width 14.2 % (9.3-17.3); White Blood Count 13.6 T/CUMM (4-12)
[2018-06-26 07:16] LABS: Eosinophils 2 % (0-10); Hypochromasia 1+; Lymphocytes 18 % (20-55); Microcytosis Slight; Ovalocytes Slight; Platelet Estimate Adequate; Segmented Neutrophils 67 % (50-85); Total Cells Counted 100
[2018-06-26] MEDS: INSULIN LISPRO 100 UNIT/ML SUBCUT SCH ×2 (07:41→10:41)
[2018-06-26] MEDS: SODIUM CHLORIDE 0.9% 1,000 ML IV SCH (08:26)
[2018-06-26] MEDS: DIGOXIN 0.125 MG TABLET PO SCH (09:13)
[2018-06-26] MEDS: CHOLECALCIFEROL 5,000 UNIT TABLET PO SCH (09:13)
[2018-06-26] MEDS: THYROID 60 MG TABLET PO SCH (09:13)
[2018-06-26] MEDS: PANTOPRAZOLE 40 MG VIAL IV SCH (09:13)
[2018-06-26] MEDS: RIFAXIMIN 550 MG TABLET PO SCH (09:14)
[2018-06-26] MEDS: amLODIPine 5 MG TABLET PO SCH (09:14)
[2018-06-26 11:52] VITALS: BP 143/65
[2018-06-26] MEDS: SODIUM BICARB INJ 100 MEQ in DEXTROSE 5% 1,000 ML IV SCH (12:40)
[2018-06-26] MEDS ORDERED: HEPARIN LOCK FLUSH 500 UNIT/5 ML SYRINGE IV ONE (13:31)
== END 2018-06-26 13:45 | disposition home or self-care (01) | DRG 375 ==
LOC: N.ED 07:43 → N.EDINP 09:54 → N.4E 16:03
PROVIDERS: ADMIT Internal Medicine; ATTEND Internal Medicine

== ENCOUNTER 2018-07-24 17:56 | Inpatient (IN) ==
[2018-07-24 20:22] LABS: Basophils # 0.1 10*3/uL (0.0-0.2); Basophils % 0.4 % (0.0-0.8); Eosinophils # 0.6 10*3/uL (0.0-0.87); Eosinophils % 5.4 % (0.00-10.9); Hemoglobin 8.5 GM/DL (12.0-16.0); Immature Granulocytes % 0.5 %; Immature Granulocytes Absolute 0.06 #; Lymphocytes # 1.2 10*3/uL (1.4-4.0); Lymphocytes % 10.6 % (21.3-54.2); Mean Corpuscular HGB Conc 31.5 GM/DL (32-36); Mean Corpuscular Volume 103.8 FL (87-102); Mean Platelet Volume 11.3 FL (9.6-12.0); Monocytes % 15.4 % (1.7-12.7); Neutrophils % 67.7 % (38.7-73.9); Platelet Count 136 T/CUMM (130-400); Red Cell Distribution Width 14.4 % (9.3-17.3); White Blood Count 11.2 T/CUMM (4-12)
[2018-07-24 20:34] LABS: INR 1.1; PT Patient Result 11.4 SECS; Partial Thromboplastin Time 27.1 SECS (0-40)
[2018-07-24 20:44] LABS: Albumin 2.1 G/DL (3.4-5.0); Bilirubin,Total 0.8 MG/DL (0.2-1.0); Calcium 8.9 MG/DL (8.5-10.1); Osmolality,Calculated 290.3 MOS/KG (273-304); Total Protein 5.4 G/DL (6.4-8.3)
[2018-07-24 21:30] LABS: VBG Base Excess -3.2 MEQ/L (0-4); VBG HCO3 21.7 MEQ/L (24-28); VBG Oxygen Saturation 98.4 %; VBG PCO2 35.4 MMHG (41-51); VBG PH 7.387
[2018-07-24 22:58] LABS: Apearance,Urine CLOUDY (Clear); Bacteria,Urine Many /HPF (Few); Bilirubin,Urine Negative (Negative); Blood, Urine Small mg/dL (Negative); Glucose,Urine (UA) Negative (Negative); Ketones,Urine Negative (Negative); Nitrite,Urine Negative (Negative); Protein,Urine 100 MG/DL; Squamous Epithelial Cell,Urine Occasional /HPF (0-10); Urine Color Yellow (Yellow); Urine Specific Gravity 1.009 (1.001-1.035); Urine Urobilinogen < 2.0 EU/DL (0.2-1.0); WBC,Urine 104 /HPF (0-6)
[2018-07-25] MEDS ORDERED: DEXTROSE 50% 25 GM/50 ML SYRINGE IV PRN (00:47)
[2018-07-25] MEDS ORDERED: LACTULOSE 20 GM/30 ML UDCUP PO PRN (00:47)
[2018-07-25] MEDS ORDERED: GLUCAGON 1 MG VIAL IM PRN (00:47)
[2018-07-25] MEDS ORDERED: ONDANSETRON 4 MG/2 ML VIAL IV PRN (00:47)
[2018-07-25] MEDS: INSULIN LISPRO 100 UNIT/ML SUBCUT SCH ×5 (01:22→23:45)
[2018-07-25] MEDS: cefTRIAXone 1,000 MG in SYRINGE 1 EACH IV SCH (01:38)
[2018-07-25] MEDS: SODIUM CHLORIDE 0.9% 1,000 ML IV SCH ×2 (01:38→16:48)
[2018-07-25] MEDS: FLUoxetine 20 MG CAPSULE PO SCH ×3 (01:47→20:25)
[2018-07-25] MEDS: SODIUM BICARBONATE 650 MG TABLET PO SCH ×4 (01:47→20:25)
[2018-07-25] MEDS: MAGNESIUM CHLORIDE 64 MG TABLET PO SCH ×4 (01:48→20:25)
[2018-07-25] MEDS: CHOLECALCIFEROL 5,000 UNIT TABLET PO SCH ×4 (01:48→20:25)
[2018-07-25] MEDS: RIFAXIMIN 550 MG TABLET PO SCH ×4 (01:48→20:25)
[2018-07-25] MEDS: hydrALAZINE 20 MG/1 ML VIAL IV PRN (05:20)
[2018-07-25] MEDS ORDERED: THYROID 60 MG TABLET PO SCH ×2 (06:00→13:03)
[2018-07-25 06:11] LABS: Basophils # 0.1 10*3/uL (0.0-0.2); Basophils % 0.4 % (0.0-0.8); Eosinophils # 1.4 10*3/uL (0.0-0.87); Eosinophils % 12.7 % (0.00-10.9); Hematocrit 25.1 VOL% (35.7-47.0); Immature Granulocytes % 0.4 %; Immature Granulocytes Absolute 0.04 #; Lymphocytes # 1.6 10*3/uL (1.4-4.0); Lymphocytes % 14.1 % (21.3-54.2); Mean Corpuscular HGB Conc 31.9 GM/DL (32-36); Mean Corpuscular Volume 103.3 FL (87-102); Mean Platelet Volume 10.8 FL (9.6-12.0); Monocytes % 17.9 % (1.7-12.7); Neutrophils % 54.5 % (38.7-73.9); Platelet Count 123 T/CUMM (130-400); Red Blood Count 2.43 MC/CUMM (3.8-5.5); Red Cell Distribution Width 14.6 % (9.3-17.3); White Blood Count 11.2 T/CUMM (4-12)
[2018-07-25 06:38] LABS: Calcium 8.6 MG/DL (8.5-10.1)
[2018-07-25 06:59] LABS: Anisocytosis Slight; Eosinophils 9 % (0-10); Lymphocytes 5 % (20-55); Microcytosis Slight; Segmented Neutrophils 78 % (50-85); Total Cells Counted 100
[2018-07-25 07:00] LABS: Ovalocytes Slight; Platelet Estimate Adequate; Target Cells Slight
[2018-07-25] MEDS: amLODIPine 5 MG TABLET PO SCH (09:27)
[2018-07-25] MEDS: CETIRIZINE 10 MG TABLET PO SCH (09:27)
[2018-07-25] MEDS: PANTOPRAZOLE 40 MG TABLET PO SCH (09:27)
[2018-07-25] MEDS: DIGOXIN 0.125 MG TABLET PO SCH (13:38)
[2018-07-25] MEDS ORDERED: LORazepam 2 MG/1 ML VIAL IV ONE (23:40)
[2018-07-26] MEDS: cefTRIAXone 1,000 MG in SYRINGE 1 EACH IV SCH (03:37)
[2018-07-26] MEDS: SODIUM CHLORIDE 0.9% 1,000 ML IV SCH ×2 (03:43→21:12)
[2018-07-26 05:10] LABS: Basophils % 0.4 % (0.0-0.8); Eosinophils # 1.6 10*3/uL (0.0-0.87); Eosinophils % 14.5 % (0.00-10.9); Hematocrit 22.8 VOL% (35.7-47.0); Hemoglobin 7.4 GM/DL (12.0-16.0); Immature Granulocytes % 0.3 %; Immature Granulocytes Absolute 0.03 #; Lymphocytes # 1.6 10*3/uL (1.4-4.0); Lymphocytes % 14.3 % (21.3-54.2); Mean Corpuscular HGB Conc 32.5 GM/DL (32-36); Mean Corpuscular Volume 104.1 FL (87-102); Mean Platelet Volume 11.6 FL (9.6-12.0); Monocytes % 16.6 % (1.7-12.7); Neutrophils % 53.9 % (38.7-73.9); Platelet Count 134 T/CUMM (130-400); Red Blood Count 2.19 MC/CUMM (3.8-5.5); Red Cell Distribution Width 14.9 % (9.3-17.3); White Blood Count 10.9 T/CUMM (4-12)
[2018-07-26 05:24] LABS: Albumin 1.8 G/DL (3.4-5.0); Bilirubin,Total 0.7 MG/DL (0.2-1.0); Calcium 8.4 MG/DL (8.5-10.1); Total Protein 4.7 G/DL (6.4-8.3)
[2018-07-26 06:17] LABS: Anisocytosis 1+; Platelet Estimate Decreased
[2018-07-26] MEDS: INSULIN LISPRO 100 UNIT/ML SUBCUT SCH ×4 (08:57→21:13)
[2018-07-26] MEDS: hydrALAZINE 20 MG/1 ML VIAL IV PRN ×2 (09:04→17:32)
[2018-07-26] MEDS ORDERED: FUROSEMIDE 40 MG/4 ML VIAL IV ONE (10:47)
[2018-07-26] MEDS ORDERED: VANCOMYCIN INJ 750 MG in SODIUM CHLORIDE 0.9% 250 ML IV ONE (11:00)
[2018-07-26] MEDS: SODIUM BICARBONATE 650 MG TABLET PO SCH ×2 (11:31→21:13)
[2018-07-26] MEDS: PANTOPRAZOLE 40 MG TABLET PO SCH (11:31)
[2018-07-26] MEDS: MAGNESIUM CHLORIDE 64 MG TABLET PO SCH ×2 (11:31→21:13)
[2018-07-26] MEDS: RIFAXIMIN 550 MG TABLET PO SCH ×2 (11:32→21:13)
[2018-07-26] MEDS: CETIRIZINE 10 MG TABLET PO SCH (11:32)
[2018-07-26] MEDS: CHOLECALCIFEROL 5,000 UNIT TABLET PO SCH ×2 (11:32→21:13)
[2018-07-26] MEDS: amLODIPine 5 MG TABLET PO SCH ×2 (11:33→21:13)
[2018-07-26] MEDS: LEVALBUTEROL 0.31 MG/3 ML NEB RESP TX SCH ×3 (11:38→19:09)
[2018-07-26] MEDS ORDERED: VANCOMYCIN INJ 1,000 MG in SODIUM CHLORIDE 0.9% 100 ML IV SCH (12:00)
[2018-07-26] MEDS ORDERED: VANCOMYCIN INJ 1,000 MG in SODIUM CHLORIDE 0.9% 250 ML IV SCH (12:30)
[2018-07-26] MEDS ORDERED: THYROID 60 MG TABLET PO SCH (14:30)
[2018-07-26] MEDS: DIGOXIN 0.125 MG TABLET PO SCH (14:30)
[2018-07-26] MEDS: FLUoxetine 20 MG CAPSULE PO SCH (21:13)
[2018-07-27] MEDS: cefTRIAXone 1,000 MG in SYRINGE 1 EACH IV SCH (00:23)
[2018-07-27] MEDS: LEVALBUTEROL 0.31 MG/3 ML NEB RESP TX SCH ×6 (01:20→19:45)
[2018-07-27] MEDS ORDERED: SODIUM CHLORIDE 0.9% 1,000 ML IV PRN (08:50)
[2018-07-27] MEDS: INSULIN LISPRO 100 UNIT/ML SUBCUT SCH ×4 (09:56→21:34)
[2018-07-27] MEDS: CHOLECALCIFEROL 5,000 UNIT TABLET PO SCH ×2 (10:00→21:06)
[2018-07-27] MEDS: RIFAXIMIN 550 MG TABLET PO SCH ×2 (10:00→21:06)
[2018-07-27] MEDS: PANTOPRAZOLE 40 MG TABLET PO SCH (10:00)
[2018-07-27] MEDS: SODIUM BICARBONATE 650 MG TABLET PO SCH ×2 (10:00→21:06)
[2018-07-27] MEDS: MAGNESIUM CHLORIDE 64 MG TABLET PO SCH ×2 (10:00→21:06)
[2018-07-27] MEDS: CETIRIZINE 10 MG TABLET PO SCH (10:00)
[2018-07-27] MEDS: amLODIPine 5 MG TABLET PO SCH ×2 (10:00→21:06)
[2018-07-27] MEDS: THYROID 60 MG TABLET PO SCH (10:01)
[2018-07-27] MEDS ORDERED: FUROSEMIDE 40 MG/4 ML VIAL IV ONE ×2 (11:56→21:00)
[2018-07-27] MEDS: DIGOXIN 0.125 MG TABLET PO SCH (18:35)
[2018-07-27] MEDS: FLUoxetine 20 MG CAPSULE PO SCH (21:06)
[2018-07-27] MEDS: ACETAMINOPHEN 325 MG TABLET PO PRN (21:06)
[2018-07-27] MEDS: MELATONIN 3 MG TABLET PO PRN (21:09)
[2018-07-28] MEDS: LEVALBUTEROL 0.31 MG/3 ML NEB RESP TX SCH ×7 (00:27→23:29)
[2018-07-28] MEDS: cefTRIAXone 1,000 MG in SYRINGE 1 EACH IV SCH (03:13)
[2018-07-28] MEDS: SODIUM CHLORIDE 0.9% 1,000 ML IV SCH ×2 (03:16→09:17)
[2018-07-28 04:48] LABS: Basophils % 0.4 % (0.0-0.8); Eosinophils # 1.6 10*3/uL (0.0-0.87); Hematocrit 28.7 VOL% (35.7-47.0); Hemoglobin 9.4 GM/DL (12.0-16.0); Immature Granulocytes % 0.3 %; Immature Granulocytes Absolute 0.03 #; Lymphocytes # 1.2 10*3/uL (1.4-4.0); Lymphocytes % 11.5 % (21.3-54.2); Mean Corpuscular HGB Conc 32.8 GM/DL (32-36); Mean Platelet Volume 10.7 FL (9.6-12.0); Monocytes % 18.7 % (1.7-12.7); Neutrophils % 54.1 % (38.7-73.9); Platelet Count 140 T/CUMM (130-400); Red Blood Count 2.93 MC/CUMM (3.8-5.5); White Blood Count 10.7 T/CUMM (4-12)
[2018-07-28 04:59] LABS: Calcium 8.3 MG/DL (8.5-10.1); Osmolality,Calculated 296.7 MOS/KG (273-304)
[2018-07-28 07:05] LABS: Eosinophils 13 % (0-10); Hypochromasia 1+; Lymphocytes 10 % (20-55); Microcytosis Slight; Ovalocytes Slight; Platelet Estimate Adequate; Segmented Neutrophils 69 % (50-85); Total Cells Counted 100
[2018-07-28] MEDS: SODIUM BICARBONATE 650 MG TABLET PO SCH ×2 (09:13→21:34)
[2018-07-28] MEDS: MAGNESIUM CHLORIDE 64 MG TABLET PO SCH ×2 (09:13→21:34)
[2018-07-28] MEDS: THYROID 60 MG TABLET PO SCH (09:13)
[2018-07-28] MEDS: CHOLECALCIFEROL 5,000 UNIT TABLET PO SCH ×2 (09:13→21:34)
[2018-07-28] MEDS: amLODIPine 5 MG TABLET PO SCH ×2 (09:13→21:34)
[2018-07-28] MEDS: PANTOPRAZOLE 40 MG TABLET PO SCH (09:13)
[2018-07-28] MEDS: CETIRIZINE 10 MG TABLET PO SCH (09:13)
[2018-07-28] MEDS: RIFAXIMIN 550 MG TABLET PO SCH ×2 (09:13→21:34)
[2018-07-28] MEDS: INSULIN LISPRO 100 UNIT/ML SUBCUT SCH ×4 (09:17→21:59)
[2018-07-28] MEDS: LACTULOSE 20 GM/30 ML UDCUP PO SCH (09:18)
[2018-07-28] MEDS ORDERED: LEVOFLOXACIN 250 MG TABLET PO SCH (11:00)
[2018-07-28] MEDS ORDERED: CARVEDILOL 3.125 MG TABLET PO SCH (11:00)
[2018-07-28] MEDS: METOPROLOL TARTRATE 25 MG TABLET PO SCH ×2 (11:54→21:34)
[2018-07-28] MEDS: DIGOXIN 0.125 MG TABLET PO SCH (14:35)
[2018-07-28] MEDS: MENTHOL/ZINC OXIDE OINT 71 GM JAR TOP SCH ×2 (14:37→21:33)
[2018-07-28] MEDS: ACETAMINOPHEN 325 MG TABLET PO PRN (19:12)
[2018-07-28] MEDS: FLUoxetine 20 MG CAPSULE PO SCH (21:34)
[2018-07-28] MEDS: MELATONIN 3 MG TABLET PO PRN (21:35)
[2018-07-29] MEDS: LEVALBUTEROL 0.31 MG/3 ML NEB RESP TX SCH ×2 (03:09→07:22)
[2018-07-29 08:55] VITALS: BP 155/49
[2018-07-29] MEDS: INSULIN LISPRO 100 UNIT/ML SUBCUT SCH (09:29)
[2018-07-29] MEDS: SODIUM BICARBONATE 650 MG TABLET PO SCH (10:56)
[2018-07-29] MEDS: RIFAXIMIN 550 MG TABLET PO SCH (10:56)
[2018-07-29] MEDS: MAGNESIUM CHLORIDE 64 MG TABLET PO SCH (10:56)
[2018-07-29] MEDS: PANTOPRAZOLE 40 MG TABLET PO SCH (10:56)
[2018-07-29] MEDS: THYROID 60 MG TABLET PO SCH (10:56)
[2018-07-29] MEDS: CETIRIZINE 10 MG TABLET PO SCH (10:56)
[2018-07-29] MEDS: amLODIPine 5 MG TABLET PO SCH (10:57)
[2018-07-29] MEDS: CHOLECALCIFEROL 5,000 UNIT TABLET PO SCH (10:57)
[2018-07-29] MEDS: METOPROLOL TARTRATE 25 MG TABLET PO SCH (10:57)
[2018-07-29] MEDS: MENTHOL/ZINC OXIDE OINT 71 GM JAR TOP SCH (11:22)
[2018-07-29] MEDS: LACTULOSE 20 GM/30 ML UDCUP PO SCH (11:22)
== END 2018-07-29 11:05 | disposition hospice, home (50) | DRG 690 ==
LOC: N.ED 17:56 → N.EDINP 23:26 → SUATTDRO 23:26 → N.4E 07-25 00:13
PROVIDERS: ADMIT Internal Medicine; ATTEND Hospitalist